=== PATIENT | female | born 1970 | race Caucasian/White ===

== ENCOUNTER 2018-09-19 12:35 | Emergency (ER) | payer MEDICAID ==
[~2018-09-19] VITALS: Ht 157.5 cm; Wt 65.0 kg
[~2018-09-19 12:35] MED LIST: BACTRIM DS1 TAB OR; KLONOPIN1 MG OR; LEXAPRO20 MG OR; NAPROXEN500 MG OR; NO HOME MEDS
[2018-09-19] MEDS ORDERED: WELLBUTRIN SR150 MG PO (12:40)
[2018-09-19] MEDS ORDERED: CITALOPRAM20 MG PO (12:41)
[2018-09-19] MEDS ORDERED: FLEXERIL5 M1 PO (15:28)
[2018-09-19] MEDS ORDERED: NAPROSYN500 MG PO (15:28)
[2018-09-19 15:45] VITALS: BP 136/82
== END 2018-09-19 15:40 | disposition home or self-care (01) ==
LOC: ED 12:35
DX: M54.6 Pain in thoracic spine (principal); M25.512 Pain in left shoulder; W16.212A Fall in (into) filled bathtub causing other injury, initial encounter; Y93.E1 Activity, personal bathing and showering; Y92.002 Bathroom of unspecified non-institutional (private) residence as the place of occurrence of the external cause; Z87.891 Personal history of nicotine dependence

== ENCOUNTER 2018-10-25 18:44 | Emergency (ER) | payer OTHER ==
[~2018-10-25] VITALS: Ht 157.5 cm; Wt 63.6 kg
[~2018-10-25 18:44] MED LIST changes: +CITALOPRAM20 MG PO; +FLEXERIL5 M1 PO; +NAPROSYN500 MG PO; +WELLBUTRIN SR150 MG PO
--- NOTE | 2018-10-25 19:05 | NUR ---
BREATHING TREATMENT GIVEN BACK TO BACK. BREATHING TECH. FOR GOOD DEPOSITION TO THE LUNGS.
[2018-10-25 19:36] LABS: HEMATOCRIT 31.6 % (37.0-47.0); HEMOGLOBIN 10.1 g/dl (12.0-16.0); IMMATURE GRANULOCYTES 0.2 % (0.0-5.0); MEAN CORPUSCULAR HGB 27.8 pG CALC (26.0-32.0); NEUT# 5.23 thou/uL (2.00-7.15); RED BLOOD COUNT 3.63 mill/uL (4.20-5.60); RED CELL DISTRI WIDTH 14.2 % (11.5-15.5)
[2018-10-25 19:37] LABS: MEAN CELL VOLUME 87.1 fL CALC (80.0-100.0)
[2018-10-25 19:49] LABS: ALBUMIN 4.3 g/dL (3.2-5.0); ALKALINE PHOSPHATASE 93 u/l (38-126); ANION GAP 14 (6-22 (CALC)); BILIRUBIN, TOTAL 0.2 mg/dL (0.0-1.4); BUN 15 mg/dL (7-17); BUN/CREATININE RATIO 24 (12-20 (CALC)); CARBON DIOXIDE 23 mmol/l (22-30); CHLORIDE 107 mmol/l (95-108); CREATININE 0.6 mg/dL (0.5-1.0); GFR > 60 ML/MIN (>=60 (CALC)); GFR FOR AFR.AMER. > 60 ML/MIN (>=60 (CALC)); SGOT/AST 27 u/l (14-36); SODIUM 140 mmol/l (137-146); TOTAL PROTEIN 7.1 g/dL (6.3-8.2)
[2018-10-25] MEDS ORDERED: VENTOLIN HFA IN (20:51)
[2018-10-25] MEDS ORDERED: ROBITUSSIN AC10 ML PO (20:51)
[2018-10-25] MEDS ORDERED: PREDNISONE50 MG PO (20:51)
[2018-10-25 21:20] VITALS: BP 127/67
== END 2018-10-25 21:20 | disposition home or self-care (01) ==
LOC: ED 18:44
PROVIDERS: Family Medicine
DX: J20.8 Acute bronchitis due to other specified organisms (principal); R06.02 Shortness of breath; R05 Cough; R51 Headache; J02.9 Acute pharyngitis, unspecified; J34.89 Other specified disorders of nose and nasal sinuses

== ENCOUNTER 2019-02-11 09:11 | Emergency (ER) | payer OTHER ==
[~2019-02-11] VITALS: Ht 157.5 cm; Wt 70.0 kg
[~2019-02-11 09:11] MED LIST changes: +PREDNISONE50 MG PO; +ROBITUSSIN AC10 ML PO; +VENTOLIN HFA IN
[2019-02-11 10:11] LABS: HEMATOCRIT 26.7 % (37.0-47.0); IMMATURE GRANULOCYTES 0.4 % (0.0-5.0); MEAN CELL VOLUME 83.4 fL CALC (80.0-100.0); MEAN CORPUSCULAR HGB 24.4 pG CALC (26.0-32.0); MEAN CORPUSCULAR HGB CONC 29.2 g/L CALC (32.0-36.0); NEUT# 4.74 thou/uL (2.00-7.15); RED BLOOD COUNT 3.2 mill/uL (4.20-5.60); RED CELL DISTRI WIDTH 14.1 % (11.5-15.5)
[2019-02-11 10:16] LABS: HEMOGLOBIN 7.8 g/dl (12.0-16.0)
[2019-02-11 10:34] LABS: ALBUMIN 3.8 g/dL (3.2-5.0); ALKALINE PHOSPHATASE 81 u/l (38-126); ANION GAP 10 (6-22 (CALC)); BUN 16 mg/dL (7-17); BUN/CREATININE RATIO 27 (12-20 (CALC)); CARBON DIOXIDE 25 mmol/l (22-30); CHLORIDE 107 mmol/l (95-108); CREATININE 0.6 mg/dL (0.5-1.0); GFR > 60 ML/MIN (>=60 (CALC)); GFR FOR AFR.AMER. > 60 ML/MIN (>=60 (CALC)); POTASSIUM 3.8 mmol/l (3.5-5.1); SGOT/AST 16 u/l (14-36); SODIUM 139 mmol/l (137-146); TOTAL PROTEIN 6.3 g/dL (6.3-8.2)
[2019-02-11 10:44] LABS: BILIRUBIN, TOTAL 0.3 mg/dL (0.0-1.4)
[2019-02-11] MEDS ORDERED: FLEXERIL PO (11:11)
[2019-02-11] MEDS ORDERED: TORADOL PO (11:11)
[2019-02-11] MEDS ORDERED: ZOFRAN4 M1 PO (11:11)
[2019-02-11 11:16] VITALS: BP 120/57
== END 2019-02-11 11:25 | disposition home or self-care (01) ==
LOC: ED 09:11
PROVIDERS: Emergency Medicine
DX: R51 Headache (principal); S16.1XXA Strain of muscle, fascia and tendon at neck level, initial encounter; X58.XXXA Exposure to other specified factors, initial encounter; Z87.820 Personal history of traumatic brain injury; M54.2 Cervicalgia

== ENCOUNTER 2019-03-19 14:39 | Emergency (ER) | payer OTHER ==
[~2019-03-19] VITALS: Ht 157.5 cm; Wt 70.0 kg
[~2019-03-19 14:39] MED LIST changes: +FLEXERIL PO; +TORADOL PO; +ZOFRAN4 M1 PO
[2019-03-19 16:30] VITALS: BP 162/85
== END 2019-03-19 16:35 | disposition home or self-care (01) ==
LOC: ED 14:39 → ED-I 15:06 → ED 15:06
DX: G43.909 Migraine, unspecified, not intractable, without status migrainosus (principal); J02.9 Acute pharyngitis, unspecified; H92.09 Otalgia, unspecified ear

== ENCOUNTER 2019-03-22 21:55 | Emergency (ER) | payer OTHER ==
[~2019-03-22] VITALS: Ht 157.5 cm; Wt 71.0 kg
[2019-03-23] MEDS ORDERED: PROVENTIL HFA IN (00:22)
[2019-03-23] MEDS ORDERED: CODEINE/GUAIFEN1 SOL PO (00:22)
[2019-03-23 00:40] VITALS: BP 139/73
== END 2019-03-23 00:39 | disposition home or self-care (01) ==
LOC: ED 21:55
DX: J04.0 Acute laryngitis (principal); R05 Cough; J02.9 Acute pharyngitis, unspecified

== ENCOUNTER 2019-06-10 00:03 | Emergency (ER) | payer OTHER ==
[~2019-06-10] VITALS: Ht 157.5 cm; Wt 74.5 kg
[~2019-06-10 00:03] MED LIST changes: +CODEINE/GUAIFEN1 SOL PO; +PROVENTIL HFA IN
[2019-06-10 00:53] LABS: HEMATOCRIT 27.5 % (37.0-47.0); HEMOGLOBIN 8.1 g/dl (12.0-16.0); IMMATURE GRANULOCYTES 0.3 % (0.0-5.0); MEAN CELL VOLUME 79.7 fL CALC (80.0-100.0); MEAN CORPUSCULAR HGB 23.5 pG CALC (26.0-32.0); MEAN CORPUSCULAR HGB CONC 29.5 g/L CALC (32.0-36.0); NEUT# 5.94 thou/uL (2.00-7.15); RED BLOOD COUNT 3.45 mill/uL (4.20-5.60); RED CELL DISTRI WIDTH 15.2 % (11.5-15.5)
[2019-06-10 01:09] LABS: ALKALINE PHOSPHATASE 95 u/l (38-126); ANION GAP 14 (6-22 (CALC)); BILIRUBIN, TOTAL 0.4 mg/dL (0.0-1.4); BUN 22 mg/dL (7-17); BUN/CREATININE RATIO 37 (12-20 (CALC)); CARBON DIOXIDE 25 mmol/l (22-30); CHLORIDE 105 mmol/l (95-108); CREATININE 0.6 mg/dL (0.5-1.0); GFR > 60 ML/MIN (>=60 (CALC)); GFR FOR AFR.AMER. > 60 ML/MIN (>=60 (CALC)); POTASSIUM 4.4 mmol/l (3.5-5.1); SODIUM 139 mmol/l (137-146)
[2019-06-10 01:10] LABS: ALBUMIN 4.6 g/dL (3.2-5.0); SGOT/AST 32 u/l (14-36); TOTAL PROTEIN 7.8 g/dL (6.3-8.2)
[2019-06-10 01:11] LABS: BARBITURATES NEGATIVE (NEGATIVE); COCAINE NEGATIVE (NEGATIVE); METHADONE NEGATIVE (NEGATIVE); TETRAHYDROCANNABIONOL NEGATIVE (NEGATIVE); TRICYLIC ANTIDEPRESSANTS NEGATIVE (NEGATIVE); URINE BILIRUBIN - DIPSTICK NEGATIVE (NEGATIVE); URINE BLOOD DIPSTICK NEGATIVE (NEGATIVE); URINE COLOR YELLOW; URINE GLUCOSE - DIPSTICK NEGATIVE (NEGATIVE); URINE KETONE NEGATIVE (NEGATIVE); URINE LEUK ESTERASE NEGATIVE (NEGATIVE); URINE NITRITE - DIPSTICK NEGATIVE (Negative); URINE PROTEIN - DIPSTICK NEGATIVE (NEG-TRACE); URINE SPECIFIC GRAVITY 1.025; URINE UROBILINOGEN - DIPSTICK 0.2 E.U./dL (0.2)
[2019-06-10 01:12] LABS: OXCYCODONE NEGATIVE (NEGATIVE)
[2019-06-10] MEDS ORDERED: ULTRAM50 M1 PO (02:56)
[2019-06-10 03:09] VITALS: BP 148/72
== END 2019-06-10 03:26 | disposition home or self-care (01) ==
LOC: ED 00:03
PROVIDERS: Emergency Medicine
DX: N28.1 Cyst of kidney, acquired (principal); K76.89 Other specified diseases of liver; K44.9 Diaphragmatic hernia without obstruction or gangrene

== ENCOUNTER 2019-06-19 20:39 | Emergency (ER) | payer OTHER ==
[~2019-06-19] VITALS: Ht 157.5 cm; Wt 74.1 kg
[~2019-06-19 20:39] MED LIST changes: +ULTRAM50 M1 PO
[2019-06-19 21:11] LABS: HEMATOCRIT 27.3 % (37.0-47.0); HEMOGLOBIN 7.9 g/dl (12.0-16.0); IMMATURE GRANULOCYTES 0.3 % (0.0-5.0); MEAN CELL VOLUME 80.3 fL CALC (80.0-100.0); MEAN CORPUSCULAR HGB 23.2 pG CALC (26.0-32.0); MEAN CORPUSCULAR HGB CONC 28.9 g/L CALC (32.0-36.0); NEUT# 4.38 thou/uL (2.00-7.15); RED BLOOD COUNT 3.4 mill/uL (4.20-5.60); RED CELL DISTRI WIDTH 15.1 % (11.5-15.5)
[2019-06-19 21:24] LABS: ALBUMIN 4.3 g/dL (3.2-5.0); ALKALINE PHOSPHATASE 78 u/l (38-126); AMYLASE 50 u/l (30-110); ANION GAP 13 (6-22 (CALC)); BILIRUBIN, TOTAL 0.3 mg/dL (0.0-1.4); BUN 17 mg/dL (7-17); BUN/CREATININE RATIO 27 (12-20 (CALC)); CARBON DIOXIDE 27 mmol/l (22-30); CHLORIDE 103 mmol/l (95-108); CREATININE 0.6 mg/dL (0.5-1.0); GFR > 60 ML/MIN (>=60 (CALC)); GFR FOR AFR.AMER. > 60 ML/MIN (>=60 (CALC)); LIPASE 61 u/l (23-300); POTASSIUM 3.7 mmol/l (3.5-5.1); SGOT/AST 31 u/l (14-36); SODIUM 139 mmol/l (137-146); TOTAL PROTEIN 7.3 g/dL (6.3-8.2)
[2019-06-19 22:19] LABS: URINE BILIRUBIN - DIPSTICK NEGATIVE (NEGATIVE); URINE BLOOD DIPSTICK NEGATIVE (NEGATIVE); URINE COLOR YELLOW; URINE GLUCOSE - DIPSTICK NEGATIVE (NEGATIVE); URINE KETONE NEGATIVE (NEGATIVE); URINE LEUK ESTERASE NEGATIVE (NEGATIVE); URINE NITRITE - DIPSTICK NEGATIVE (Negative); URINE PH 5.5 (4.5-8.0); URINE PROTEIN - DIPSTICK NEGATIVE (NEG-TRACE); URINE UROBILINOGEN - DIPSTICK 0.2 E.U./dL (0.2)
[2019-06-19 22:30] VITALS: BP 138/72
[2019-06-19] MEDS ORDERED: ORPHENADRINE100 MG PO (22:39)
[2019-06-19] MEDS ORDERED: TRAMADOL HCL50 MG PO (22:39)
[2019-06-19] MEDS ORDERED: FERROUS SULF325 M3 PO (22:42)
== END 2019-06-19 22:50 | disposition home or self-care (01) ==
LOC: ED 20:39
PROVIDERS: Family Medicine
DX: M54.5 Low back pain (principal); R10.9 Unspecified abdominal pain; D64.9 Anemia, unspecified; N28.1 Cyst of kidney, acquired

== ENCOUNTER 2019-07-14 15:29 | Emergency (ER) | payer OTHER ==
[~2019-07-14] VITALS: Ht 157.5 cm; Wt 70.0 kg
[~2019-07-14 15:29] MED LIST changes: +FERROUS SULF325 M3 PO; +ORPHENADRINE100 MG PO; +TRAMADOL HCL50 MG PO
[2019-07-14 16:15] LABS: HEMATOCRIT 28.2 % (37.0-47.0); HEMOGLOBIN 8.1 g/dl (12.0-16.0); IMMATURE GRANULOCYTES 0.3 % (0.0-5.0); MEAN CELL VOLUME 78.6 fL CALC (80.0-100.0); MEAN CORPUSCULAR HGB 22.6 pG CALC (26.0-32.0); MEAN CORPUSCULAR HGB CONC 28.7 g/L CALC (32.0-36.0); NEUT# 3.99 thou/uL (2.00-7.15); RED BLOOD COUNT 3.59 mill/uL (4.20-5.60)
[2019-07-14 16:30] LABS: ALBUMIN 4.4 g/dL (3.2-5.0); ALKALINE PHOSPHATASE 86 u/l (38-126); ANION GAP 13 (6-22 (CALC)); BILIRUBIN, TOTAL 0.3 mg/dL (0.0-1.4); BUN 17 mg/dL (7-17); BUN/CREATININE RATIO 28 (12-20 (CALC)); CARBON DIOXIDE 24 mmol/l (22-30); CHLORIDE 107 mmol/l (95-108); CREATININE 0.6 mg/dL (0.5-1.0); GFR > 60 ML/MIN (>=60 (CALC)); GFR FOR AFR.AMER. > 60 ML/MIN (>=60 (CALC)); SGOT/AST 24 u/l (14-36); SODIUM 140 mmol/l (137-146); TOTAL PROTEIN 7.6 g/dL (6.3-8.2)
[2019-07-14 16:41] LABS: URINE BILIRUBIN - DIPSTICK NEGATIVE (NEGATIVE); URINE BLOOD DIPSTICK NEGATIVE (NEGATIVE); URINE COLOR YELLOW; URINE GLUCOSE - DIPSTICK NEGATIVE (NEGATIVE); URINE KETONE NEGATIVE (NEGATIVE); URINE LEUK ESTERASE NEGATIVE (NEGATIVE); URINE NITRITE - DIPSTICK NEGATIVE (Negative); URINE PROTEIN - DIPSTICK NEGATIVE (NEG-TRACE); URINE SPECIFIC GRAVITY 1.025; URINE UROBILINOGEN - DIPSTICK 0.2 E.U./dL (0.2)
[2019-07-14 16:45] LABS: BARBITURATES NEGATIVE (NEGATIVE); COCAINE NEGATIVE (NEGATIVE); METHADONE NEGATIVE (NEGATIVE); OXCYCODONE NEGATIVE (NEGATIVE); TETRAHYDROCANNABIONOL NEGATIVE (NEGATIVE); TRICYLIC ANTIDEPRESSANTS NEGATIVE (NEGATIVE)
[2019-07-14 17:58] VITALS: BP 143/69
== END 2019-07-14 18:11 | disposition home or self-care (01) ==
LOC: ED 15:29
DX: R51 Headache (principal); F41.9 Anxiety disorder, unspecified; R82.5 Elevated urine levels of drugs, medicaments and biological substances; Z87.820 Personal history of traumatic brain injury

== ENCOUNTER 2020-02-17 18:00 | Emergency (ER) | payer OTHER ==
[2020-02-17 18:50] LABS: IMMATURE GRANULOCYTES 0.1 % (0.0-5.0); MEAN CORPUSCULAR HGB CONC 34.3 g/dL CAL (32.0-36.0); NEUT# 3.72 thou/uL (2.00-7.15); RED BLOOD COUNT 3.97 mill/uL (4.20-5.60); RED CELL DISTRI WIDTH 12.1 % (11.5-15.5)
[2020-02-17 18:55] LABS: HEMOGLOBIN 12.7 g/dl (12.0-16.0); MEAN CELL VOLUME 93.2 fL CALC (80.0-100.0)
[2020-02-17 19:09] LABS: ANION GAP 12 (6-22 (CALC)); BUN 12 mg/dL (7-17); BUN/CREATININE RATIO 22 (12-20 (CALC)); CARBON DIOXIDE 22 mmol/l (22-30); CHLORIDE 107 mmol/l (95-108); CREATININE 0.6 mg/dL (0.5-1.0); GFR > 60 ML/MIN (>=60 (CALC)); GFR FOR AFR.AMER. > 60 ML/MIN (>=60 (CALC)); POTASSIUM 3.6 mmol/l (3.5-5.1); SODIUM 137 mmol/l (137-146)
[2020-02-17] MEDS ORDERED: LEVOTHYROXIN50 MCG PO (19:48)
[2020-02-17] MEDS ORDERED: ZOCOR20 M1 PO (19:48)
[2020-02-17] MEDS ORDERED: ALPRAZOLAM0.5 M2 PO (20:21)
[2020-02-17 23:00] VITALS: BP 102/55
--- NOTE | 2020-02-22 11:10 | NUR ---
Notified patient of negative Covid results. Advised patient to follow up with PCP or return to ED with urgent needs. Advised patient to continue Covid prevention measures.
== END 2020-02-17 23:09 | disposition home or self-care (01) ==
LOC: ED 18:00
PROVIDERS: Family Medicine
DX: F41.9 Anxiety disorder, unspecified (principal); R07.89 Other chest pain; Z20.828 Contact with and (suspected) exposure to other viral communicable diseases
CPT/HCPCS: J2060

== ENCOUNTER 2020-04-12 18:21 | Emergency (ER) | payer OTHER ==
[~2020-04-12] VITALS: Ht 157.5 cm; Wt 75.0 kg
[~2020-04-12 18:21] MED LIST changes: +ALPRAZOLAM0.5 M2 PO; +LEVOTHYROXIN50 MCG PO; +ZOCOR20 M1 PO
[2020-04-12 18:58] LABS: HEMATOCRIT 37.7 % (37.0-47.0); HEMOGLOBIN 12.6 g/dl (12.0-16.0); IMMATURE GRANULOCYTES 0.3 % (0.0-5.0); MEAN CELL VOLUME 93.3 fL CALC (80.0-100.0); MEAN CORPUSCULAR HGB 31.2 pG CALC (26.0-32.0); MEAN CORPUSCULAR HGB CONC 33.4 g/dL CAL (32.0-36.0); NEUT# 4.55 thou/uL (2.00-7.15); RED BLOOD COUNT 4.04 mill/uL (4.20-5.60); RED CELL DISTRI WIDTH 12.1 % (11.5-15.5)
[2020-04-12 19:15] LABS: ALKALINE PHOSPHATASE 113 u/l (38-126); ANION GAP 9 (6-22 (CALC)); BILIRUBIN, TOTAL 0.6 mg/dL (0.0-1.4); BUN 11 mg/dL (7-17); BUN/CREATININE RATIO 22 (12-20 (CALC)); CARBON DIOXIDE 26 mmol/l (22-30); CHLORIDE 104 mmol/l (95-108); CREATININE 0.5 mg/dL (0.5-1.0); GFR > 60 ML/MIN (>=60 (CALC)); GFR FOR AFR.AMER. > 60 ML/MIN (>=60 (CALC)); POTASSIUM 3.7 mmol/l (3.5-5.1); SGOT/AST 36 u/l (14-36); SODIUM 136 mmol/l (137-146)
[2020-04-12 19:27] LABS: MYOGLOBIN 18 ng/mL (0 - 62)
[2020-04-12 19:50] LABS: URINE BILIRUBIN - DIPSTICK NEGATIVE (NEGATIVE); URINE BLOOD DIPSTICK NEGATIVE (NEGATIVE); URINE COLOR YELLOW; URINE GLUCOSE - DIPSTICK NEGATIVE (NEGATIVE); URINE KETONE NEGATIVE (NEGATIVE); URINE LEUK ESTERASE NEGATIVE (NEGATIVE); URINE NITRITE - DIPSTICK NEGATIVE (Negative); URINE PROTEIN - DIPSTICK NEGATIVE (NEG-TRACE)
[2020-04-12] MEDS ORDERED: FIORICET PO (20:01)
[2020-04-12] MEDS ORDERED: MEDDOSEPAK PO ×2 (20:20)
[2020-04-12 20:36] VITALS: BP 161/91
== END 2020-04-12 20:55 | disposition home or self-care (01) ==
LOC: ED 18:21
PROVIDERS: Emergency Medicine
DX: R56.9 Unspecified convulsions (principal); F41.9 Anxiety disorder, unspecified; L50.9 Urticaria, unspecified; Z87.820 Personal history of traumatic brain injury; Z90.710 Acquired absence of both cervix and uterus

== ENCOUNTER 2020-05-16 12:48 | Emergency (ER) | payer OTHER ==
[~2020-05-16] VITALS: Ht 157.5 cm; Wt 74.0 kg
[~2020-05-16 12:48] MED LIST changes: +FIORICET PO; +MEDDOSEPAK PO
[2020-05-16 14:05] VITALS: BP 128/77
== END 2020-05-16 14:05 | disposition home or self-care (01) ==
LOC: ED 12:48
DX: S60.052A Contusion of left little finger without damage to nail, initial encounter (principal); W23.0XXA Caught, crushed, jammed, or pinched between moving objects, initial encounter; Y93.89 Activity, other specified; Y92.009 Unspecified place in unspecified non-institutional (private) residence as the place of occurrence of the external cause

== ENCOUNTER 2020-05-23 16:17 | Emergency (ER) | payer OTHER ==
[~2020-05-23] VITALS: Ht 157.5 cm; Wt 86.0 kg
[2020-05-23] MEDS ORDERED: ESTROVE1 PO (16:38)
[2020-05-23] MEDS ORDERED: BLACK COHOSH20 MG PO (16:39)
[2020-05-23 17:04] LABS: HEMOGLOBIN 12.7 g/dl (12.0-16.0); IMMATURE GRANULOCYTES 0.3 % (0.0-5.0); MEAN CORPUSCULAR HGB 30.8 pG CALC (26.0-32.0); MEAN CORPUSCULAR HGB CONC 33.4 g/dL CAL (32.0-36.0); NEUT# 4.17 thou/uL (2.00-7.15); RED BLOOD COUNT 4.13 mill/uL (4.20-5.60); RED CELL DISTRI WIDTH 12.1 % (11.5-15.5)
[2020-05-23 17:21] LABS: URINE BILIRUBIN - DIPSTICK NEGATIVE (NEGATIVE); URINE BLOOD DIPSTICK NEGATIVE (NEGATIVE); URINE COLOR YELLOW; URINE GLUCOSE - DIPSTICK NEGATIVE (NEGATIVE); URINE KETONE NEGATIVE (NEGATIVE); URINE LEUK ESTERASE NEGATIVE (NEGATIVE); URINE NITRITE - DIPSTICK NEGATIVE (Negative); URINE PROTEIN - DIPSTICK NEGATIVE (NEG-TRACE); URINE UROBILINOGEN - DIPSTICK 0.2 E.U./dL (0.2)
[2020-05-23 17:28] LABS: ALBUMIN 4.1 g/dL (3.2-5.0); ALKALINE PHOSPHATASE 130 u/l (38-126); ANION GAP 12 (6-22 (CALC)); BILIRUBIN, TOTAL 0.4 mg/dL (0.0-1.4); BUN 12 mg/dL (7-17); BUN/CREATININE RATIO 27 (12-20 (CALC)); CARBON DIOXIDE 24 mmol/l (22-30); CHLORIDE 107 mmol/l (95-108); CREATININE 0.5 mg/dL (0.5-1.0); ETHYL ALCOHOL 0 mg/dl (0-30); GFR > 60 ML/MIN (>=60 (CALC)); GFR FOR AFR.AMER. > 60 ML/MIN (>=60 (CALC)); POTASSIUM 3.9 mmol/l (3.5-5.1); SGOT/AST 26 u/l (14-36); SODIUM 140 mmol/l (137-146); TOTAL PROTEIN 6.9 g/dL (6.3-8.2)
[2020-05-23 17:55] VITALS: BP 117/64
== END 2020-05-23 17:49 | disposition home or self-care (01) ==
LOC: ED 16:17
PROVIDERS: Family Medicine
DX: R56.9 Unspecified convulsions (principal); F15.21 Other stimulant dependence, in remission; Z90.710 Acquired absence of both cervix and uterus; Z87.820 Personal history of traumatic brain injury; Z20.828 Contact with and (suspected) exposure to other viral communicable diseases

== ENCOUNTER 2020-06-28 16:35 | Emergency (ER) | payer OTHER ==
[~2020-06-28] VITALS: Ht 157.5 cm; Wt 86.0 kg
[~2020-06-28 16:35] MED LIST changes: +BLACK COHOSH20 MG PO; +ESTROVE1 PO
[2020-06-28] MEDS ORDERED: SIMVASTATIN20 MG PO (17:11)
[2020-06-28] MEDS ORDERED: ZITHROMAX250 MG PO (18:17)
[2020-06-28] MEDS ORDERED: KEPPRA XR500 MG PO (18:59)
[2020-06-28 20:23] VITALS: BP 128/67
== END 2020-06-28 19:23 | disposition home or self-care (01) ==
LOC: ED 16:35
DX: R50.9 Fever, unspecified (principal); F41.9 Anxiety disorder, unspecified; F31.9 Bipolar disorder, unspecified; E03.9 Hypothyroidism, unspecified; Z87.820 Personal history of traumatic brain injury; Z20.828 Contact with and (suspected) exposure to other viral communicable diseases

== ENCOUNTER 2020-07-01 15:31 | Emergency (ER) | payer OTHER ==
[~2020-07-01] VITALS: Ht 157.5 cm; Wt 68.0 kg
[~2020-07-01 15:31] MED LIST changes: +KEPPRA XR500 MG PO; +SIMVASTATIN20 MG PO; +ZITHROMAX250 MG PO
[2020-07-01 16:44] VITALS: BP 140/82
== END 2020-07-01 16:53 | disposition home or self-care (01) ==
LOC: ED 15:31
DX: R52 Pain, unspecified (principal); F41.9 Anxiety disorder, unspecified; F31.9 Bipolar disorder, unspecified; E03.9 Hypothyroidism, unspecified

== ENCOUNTER 2020-09-13 18:01 | Emergency (ER) | payer OTHER ==
[~2020-09-13] VITALS: Ht 157.5 cm; Wt 72.7 kg
[2020-09-13] MEDS ORDERED: PHENERGAN25 MG RE (18:57)
[2020-09-13] MEDS ORDERED: FIORICET PO (18:57)
[2020-09-13 20:10] VITALS: BP 136/66
== END 2020-09-13 20:20 | disposition home or self-care (01) ==
LOC: ED 18:01
DX: G43.909 Migraine, unspecified, not intractable, without status migrainosus (principal); G40.909 Epilepsy, unspecified, not intractable, without status epilepticus; F41.9 Anxiety disorder, unspecified; F31.9 Bipolar disorder, unspecified; E03.9 Hypothyroidism, unspecified; Z87.820 Personal history of traumatic brain injury; Z20.828 Contact with and (suspected) exposure to other viral communicable diseases

== ENCOUNTER 2020-10-27 10:01 | Emergency (ER) | payer OTHER ==
[~2020-10-27] VITALS: Ht 157.5 cm; Wt 75.0 kg
[~2020-10-27 10:01] MED LIST changes: +PHENERGAN25 MG RE
[2020-10-27 11:15] LABS: HEMATOCRIT 40.7 % (37.0-47.0); HEMOGLOBIN 13.7 g/dl (12.0-16.0); IMMATURE GRANULOCYTES 0.4 % (0.0-5.0); MEAN CELL VOLUME 93.6 fL CALC (80.0-100.0); MEAN CORPUSCULAR HGB 31.5 pG CALC (26.0-32.0); MEAN CORPUSCULAR HGB CONC 33.7 g/dL CAL (32.0-36.0); NEUT# 7.64 thou/uL (2.00-7.15); RED BLOOD COUNT 4.35 mill/uL (4.20-5.60); RED CELL DISTRI WIDTH 12.5 % (11.5-15.5)
[2020-10-27 11:31] LABS: ALBUMIN 4.3 g/dL (3.2-5.0); ALKALINE PHOSPHATASE 232 u/l (38-126); ANION GAP 11 (6-22 (CALC)); BILIRUBIN, TOTAL 0.9 mg/dL (0.0-1.4); BUN 13 mg/dL (7-17); BUN/CREATININE RATIO 25 (12-20 (CALC)); CARBON DIOXIDE 25 mmol/l (22-30); CHLORIDE 106 mmol/l (95-108); CREATININE 0.5 mg/dL (0.5-1.0); GFR > 60 ML/MIN (>=60 (CALC)); GFR FOR AFR.AMER. > 60 ML/MIN (>=60 (CALC)); POTASSIUM 3.9 mmol/l (3.5-5.1); SGOT/AST 61 u/l (14-36); SODIUM 138 mmol/l (137-146); TOTAL PROTEIN 7.6 g/dL (6.3-8.2)
[2020-10-27 12:13] VITALS: BP 116/72
== END 2020-10-27 12:14 | disposition home or self-care (01) ==
LOC: ED 10:01
PROVIDERS: Family Medicine
DX: J06.9 Acute upper respiratory infection, unspecified (principal); R51.9 Headache, unspecified; R52 Pain, unspecified; I10 Essential (primary) hypertension; F41.9 Anxiety disorder, unspecified; F31.9 Bipolar disorder, unspecified; E03.9 Hypothyroidism, unspecified; E78.00 Pure hypercholesterolemia, unspecified; Z87.820 Personal history of traumatic brain injury; Z20.822 Contact with and (suspected) exposure to COVID-19

== ENCOUNTER 2020-10-29 10:04 | Emergency (ER) | payer OTHER ==
[~2020-10-29] VITALS: Ht 157.5 cm; Wt 70.4 kg
[2020-10-29] MEDS ORDERED: OMEPRAZOLE DR20 MG PO (10:40)
[2020-10-29] MEDS ORDERED: VENTOLIN HFA IN (12:16)
[2020-10-29] MEDS ORDERED: TESSALON PERLE100 MG PO (12:16)
[2020-10-29] MEDS ORDERED: ZITHROMAX250 MG PO (12:16)
[2020-10-29] MEDS ORDERED: MEDDOSEPAK PO (12:16)
[2020-10-29 12:51] VITALS: BP 136/77
== END 2020-10-29 12:54 | disposition home or self-care (01) ==
LOC: ED 10:04
DX: J40 Bronchitis, not specified as acute or chronic (principal); J32.9 Chronic sinusitis, unspecified; E03.9 Hypothyroidism, unspecified; F41.9 Anxiety disorder, unspecified; F31.9 Bipolar disorder, unspecified; K21.9 Gastro-esophageal reflux disease without esophagitis; Z87.820 Personal history of traumatic brain injury

== ENCOUNTER 2020-12-29 15:41 | Observation (INO) | payer OTHER ==
[~2020-12-29] VITALS: Ht 157.5 cm; Wt 74.0 kg
[~2020-12-29 15:41] MED LIST changes: +OMEPRAZOLE DR20 MG PO; +TESSALON PERLE100 MG PO
--- NOTE | 2020-12-29 15:50 | NUR ---
AMBULATED TO ROOM WITH STEADY GAIT, WHEELCHAIR OFFERED AND DECLINED.
--- NOTE | 2020-12-29 16:30 | NUR ---
PATIENT SPOUSE AT BEDSIDE
[2020-12-29 16:49] LABS: HEMATOCRIT 38.5 % (37.0-47.0); IMMATURE GRANULOCYTES 0.2 % (0.0-5.0); MEAN CELL VOLUME 93.2 fL CALC (80.0-100.0); MEAN CORPUSCULAR HGB 31.5 pG CALC (26.0-32.0); MEAN CORPUSCULAR HGB CONC 33.8 g/dL CAL (32.0-36.0); NEUT# 3.22 thou/uL (2.00-7.15); RED BLOOD COUNT 4.13 mill/uL (4.20-5.60); RED CELL DISTRI WIDTH 12.4 % (11.5-15.5)
--- NOTE | 2020-12-29 16:51 | NUR ---
PATIENT TO CT,STABLE.
[2020-12-29 16:59] LABS: ALKALINE PHOSPHATASE 118 u/l (38-126); ANION GAP 10 (6-22 (CALC)); BILIRUBIN, TOTAL 0.6 mg/dL (0.0-1.4); BUN 13 mg/dL (7-17); BUN/CREATININE RATIO 26 (12-20 (CALC)); CARBON DIOXIDE 27 mmol/l (22-30); CHLORIDE 103 mmol/l (95-108); CREATININE 0.5 mg/dL (0.5-1.0); GFR > 60 ML/MIN (>=60 (CALC)); GFR FOR AFR.AMER. > 60 ML/MIN (>=60 (CALC)); POTASSIUM 3.7 mmol/l (3.5-5.1); SGOT/AST 32 u/l (14-36); SODIUM 137 mmol/l (137-146)
--- NOTE | 2020-12-29 17:23 | NUR ---
PATIENT RESTING,LIGHTS DIMMED FOR COMFORT.
--- NOTE | 2020-12-29 18:31 | NUR ---
PHYSICIAN TO BEDSIDE TO DISCUS FINDINGS AND POSSIBLE ADMISSION.
--- NOTE | 2020-12-29 19:10 | NUR ---
MEDICATED FOR L BREAST PAIN W/P/D SKIN NO SWEATS NO DYSPNEA NO ST T CHANGES NBO ECTOPY
--- NOTE | 2020-12-29 20:50 | NUR ---
PHONE REPORT TO NURSE TAPIA ON MS
--- NOTE | 2020-12-29 20:55 | NUR ---
W/P/D NSR NO ST T CHANGES DENIES PAIN OF ANY ORIGIN TRANSPORTED TO [facility] [address] VIA TELE AND IN STABLE CONDITION
[2020-12-29 21:05] VITALS: BP 142/86
--- NOTE | 2020-12-29 21:05 | NUR ---
PT ARRIVED TO FLOOR VIA WHEELCHAIR ACCOMPAINED BY ER STAFF. PT IS ALERT AND ORIENTED X4. AMBULATORY WITH STEADY GAIT FROM WHEELCHAIR TO BED. IV SITE APPEARS HEALTHY. SUPERVISOR TANK HOUSE IN PLACE. PT ORIENTED TO ROOM AND CALL LIGHT SYSTEM. MEAL PROVIDED. DISCUSSED POC AND SAFETY PRECAUTIONS. CALL LIGHT WITHIN REACH. WILL CONTINUE TO MONITOR.
[2020-12-29 22:36] LABS: URINE BILIRUBIN - DIPSTICK NEGATIVE (NEGATIVE); URINE BLOOD DIPSTICK NEGATIVE (NEGATIVE); URINE COLOR YELLOW; URINE GLUCOSE - DIPSTICK NEGATIVE (NEGATIVE); URINE KETONE NEGATIVE (NEGATIVE); URINE LEUK ESTERASE NEGATIVE (NEGATIVE); URINE PROTEIN - DIPSTICK NEGATIVE (NEG-TRACE)
[2020-12-29 22:44] LABS: URINE NITRITE - DIPSTICK NEGATIVE (Negative)
[2020-12-29 22:46] LABS: URINE AMORPH SEDIMENT FEW hpf (NONE-FEW); URINE BACTERIA FEW hpf; URINE RBC 0-2 RBC/hpf (0-5); URINE SQUAMOUS EPITHELIAL CELL FEW EPI/hpf (0-FEW); URINE WBC 0-2 WBC/hpf (0-5)
[2020-12-30 00:15] VITALS: BP 116/71
--- NOTE | 2020-12-30 01:35 | NUR ---
PT RESTING IN BED WITH EYES CLOSED. NO APPARENT DISTRESS NOTED. RESPIRATIONS EVEN AND UNLABORED. IV FLUIDS INFUSING WITHOUT DIFFICULTY. TEACHER DANCING IN PLACE. CALL LIGHT WITHIN REACH. WILL CONTINUE TO MONITOR.
[2020-12-30 03:50] VITALS: BP 104/68
--- NOTE | 2020-12-30 05:17 | NUR ---
PT RESTING IN BED WITH EYES CLOSED. NO APPARENT DISTRESS NOTED. RESPIRATIONS EVEN AND UNLABORED. IV FLUIDS INFUSING WITHOUT DIFFICULTY. JOURNEYMAN PAINTER IN PLACE. CALL LIGHT WITHIN REACH. WILL CONTINUE TO MONITOR.
[2020-12-30 05:30] LABS: HEMATOCRIT 35.3 % (37.0-47.0); HEMOGLOBIN 11.9 g/dl (12.0-16.0); IMMATURE GRANULOCYTES 0.3 % (0.0-5.0); MEAN CELL VOLUME 94.9 fL CALC (80.0-100.0); MEAN CORPUSCULAR HGB CONC 33.7 g/dL CAL (32.0-36.0); NEUT# 2.89 thou/uL (2.00-7.15); RED BLOOD COUNT 3.72 mill/uL (4.20-5.60); RED CELL DISTRI WIDTH 12.5 % (11.5-15.5)
[2020-12-30 05:47] LABS: ALBUMIN 3.3 g/dL (3.2-5.0); ALKALINE PHOSPHATASE 90 u/l (38-126); ANION GAP 7 (6-22 (CALC)); BILIRUBIN, TOTAL 0.6 mg/dL (0.0-1.4); BUN 17 mg/dL (7-17); BUN/CREATININE RATIO 40 (12-20 (CALC)); CALCULATED LDLCHOLESTEROL 82 mg/dL (62-129 (CALC)); CARBON DIOXIDE 27 mmol/l (22-30); CHLORIDE 107 mmol/l (95-108); CHOLESTEROL HDL RATIO 3.6 (<4.4 (CALC)); CREATININE 0.4 mg/dL (0.5-1.0); GFR > 60 ML/MIN (>=60 (CALC)); GFR FOR AFR.AMER. > 60 ML/MIN (>=60 (CALC)); HDL CHOLESTEROL 42 mg/dL (>=40); MAGNESIUM 1.6 mg/dL (1.6-2.3); SGOT/AST 35 u/l (14-36); SODIUM 137 mmol/l (137-146); TOTAL CHOLESTEROL 152 mg/dl (0-199); TOTAL PROTEIN 5.9 g/dL (6.3-8.2); TOTAL TRIGLYCERIDES 138 mg/dl (30-149); VLDL CHOLESTROL 28 mg/dl (2-49 (CALC))
[2020-12-30 07:15] VITALS: BP 110/73
--- NOTE | 2020-12-30 07:30 | NUR ---
PATIENT RESTING IN BED AT THIS TIME. DRILL FOREMAN DONE. LUNG SOUNDS ARE CLEAR, PATIENT COMPLAINS OF PAIN IN HER L SHOULDER AND STATED "I DON'T KNOW WHAT I DID TO MY SHOULDER MUSCLE". PATIENT RATES HER PAIN A 2 AT THIS TIME. PATIENTS SIDERAILS ARE PADDED AT THIS TIME DUE TO SEIZURE PERCUTIONS. SIDERAILS ARE UP X2 CALL LIGHT AND PERSONAL ITEMS ARE WITHIN IN REACH.
--- NOTE | 2020-12-30 09:02 | NUR ---
BLOOD PRESSURE TAKEN BILATERALLY AT THIS TIME BP ON THE LEFT WAS 128/84 BP ON THE RIGHT ARM WAS 132/84. DR. CAMACHO AND LACY RINCON IN ROOM AT TIME OF BP'S BEING TAKEN.
[2020-12-30 09:04] VITALS: BP 128/84
[2020-12-30 10:52] VITALS: BP 127/78
[2020-12-30] MEDS ORDERED: ASPIRIN 81 LOW81 MG PO (11:23)
--- NOTE | 2020-12-30 11:57 | NUR ---
PATIENT D/C AT THIS TIME PATIENT VERBALIZES UNDERSTANDING OF D/C INSTRUCTIONS AT THIS TIME.
== END 2020-12-30 12:07 | disposition home or self-care (01) ==
LOC: ED 15:41 → ED-I 18:14 → ED 18:40 → MS2 18:41 → ED-I 18:41 → MS2 18:42
PROVIDERS: Emergency Medicine; Nurse Practitioner; ADMIT Internal Medicine; ATTEND Internal Medicine
DX: R07.9 Chest pain, unspecified (principal); R51.9 Headache, unspecified; G40.909 Epilepsy, unspecified, not intractable, without status epilepticus; F41.9 Anxiety disorder, unspecified; F31.9 Bipolar disorder, unspecified; E03.9 Hypothyroidism, unspecified; E78.5 Hyperlipidemia, unspecified; K21.9 Gastro-esophageal reflux disease without esophagitis; Z87.820 Personal history of traumatic brain injury; Z20.822 Contact with and (suspected) exposure to COVID-19
CPT/HCPCS: G0378; J1650; Q9967

== ENCOUNTER 2021-02-02 08:35 | Emergency (ER) | payer OTHER ==
[~2021-02-02] VITALS: Ht 157.5 cm; Wt 68.1 kg
[~2021-02-02 08:35] MED LIST changes: +ASPIRIN 81 LOW81 MG PO
[2021-02-02 09:04] LABS: HEMATOCRIT 39.8 % (37.0-47.0); HEMOGLOBIN 13.4 g/dl (12.0-16.0); IMMATURE GRANULOCYTES 0.1 % (0.0-5.0); MEAN CELL VOLUME 93.2 fL CALC (80.0-100.0); MEAN CORPUSCULAR HGB 31.4 pG CALC (26.0-32.0); MEAN CORPUSCULAR HGB CONC 33.7 g/dL CAL (32.0-36.0); NEUT# 3.81 thou/uL (2.00-7.15); RED BLOOD COUNT 4.27 mill/uL (4.20-5.60); RED CELL DISTRI WIDTH 12.3 % (11.5-15.5)
[2021-02-02 09:24] LABS: ALKALINE PHOSPHATASE 115 u/l (38-126); ANION GAP 10 (6-22 (CALC)); BILIRUBIN, TOTAL 0.6 mg/dL (0.0-1.4); BUN 17 mg/dL (7-17); BUN/CREATININE RATIO 30 (12-20 (CALC)); CARBON DIOXIDE 24 mmol/l (22-30); CHLORIDE 105 mmol/l (95-108); CREATININE 0.6 mg/dL (0.5-1.0); GFR > 60 ML/MIN (>=60 (CALC)); GFR FOR AFR.AMER. > 60 ML/MIN (>=60 (CALC)); POTASSIUM 3.6 mmol/l (3.5-5.1); SGOT/AST 32 u/l (14-36); SODIUM 136 mmol/l (137-146)
[2021-02-02 09:27] LABS: ALBUMIN 4.1 g/dL (3.2-5.0); TOTAL PROTEIN 7.5 g/dL (6.3-8.2)
[2021-02-02 11:16] VITALS: BP 123/80
== END 2021-02-02 11:15 | disposition home or self-care (01) ==
LOC: ED 08:35
PROVIDERS: Family Medicine
DX: R56.9 Unspecified convulsions (principal); F41.9 Anxiety disorder, unspecified; F31.9 Bipolar disorder, unspecified; E03.9 Hypothyroidism, unspecified; E78.00 Pure hypercholesterolemia, unspecified; K21.9 Gastro-esophageal reflux disease without esophagitis; Z87.820 Personal history of traumatic brain injury; Z79.899 Other long term (current) drug therapy

== ENCOUNTER 2021-03-12 13:06 | Observation (INO) | payer OTHER ==
[~2021-03-12] VITALS: Ht 157.5 cm; Wt 67.0 kg
--- NOTE | 2021-03-12 13:07 | NUR ---
PT TO ROOM WITH STEADY GIAT
--- NOTE | 2021-03-12 14:00 | NUR ---
RESTING ON STRETCHER. CALL CANAS WITHIN REACH
[2021-03-12 14:15] LABS: IMMATURE GRANULOCYTES 0.1 % (0.0-5.0); MEAN CELL VOLUME 94.2 fL CALC (80.0-100.0); MEAN CORPUSCULAR HGB CONC 33.9 g/dL CAL (32.0-36.0); NEUT# 4.89 thou/uL (2.00-7.15); RED BLOOD COUNT 4.16 mill/uL (4.20-5.60); RED CELL DISTRI WIDTH 12.3 % (11.5-15.5)
[2021-03-12 14:19] LABS: HEMATOCRIT 39.2 % (37.0-47.0); HEMOGLOBIN 13.3 g/dl (12.0-16.0)
[2021-03-12 14:40] LABS: ALBUMIN 4.1 g/dL (3.2-5.0); ALKALINE PHOSPHATASE 116 u/l (38-126); ANION GAP 11 (6-22 (CALC)); BILIRUBIN, TOTAL 0.5 mg/dL (0.0-1.4); BUN 18 mg/dL (7-17); BUN/CREATININE RATIO 30 (12-20 (CALC)); CARBON DIOXIDE 24 mmol/l (22-30); CHLORIDE 106 mmol/l (95-108); CREATININE 0.6 mg/dL (0.5-1.0); GFR > 60 ML/MIN (>=60 (CALC)); GFR FOR AFR.AMER. > 60 ML/MIN (>=60 (CALC)); LIPASE 59 u/l (23-300); SGOT/AST 32 u/l (14-36); SODIUM 137 mmol/l (137-146); TOTAL PROTEIN 7.5 g/dL (6.3-8.2)
[2021-03-12 14:47] LABS: POTASSIUM 3.5 mmol/l (3.5-5.1)
--- NOTE | 2021-03-12 15:00 | NUR ---
REMAINS IN RADIOLOGY
--- NOTE | 2021-03-12 16:00 | NUR ---
FIRST DOSE OF GASTROGRAFFIN COMPLETE. PT RESTING ON STRETCHER. NO ACUTE DISTRESS
--- NOTE | 2021-03-12 17:00 | NUR ---
RESTING ON STRETCHER. CALL CANAS WITHIN REACH. AWAITING CT SCAN
--- NOTE | 2021-03-12 18:00 | NUR ---
RESTING ON STRETCHER. AWAITING CT SCAN. CALL CANAS WITHIN REACH
--- NOTE | 2021-03-12 19:11 | NUR ---
PERIANESTHESIA MANAGER REPORTS THAT IV INFILTRATED. CATH REMOVED INTACT
--- NOTE | 2021-03-12 19:19 | NUR ---
LUE WITHOUT SWELLING OR REDNESS. PATIENT DENIES PAIN TO AREA. PT REPORTS SOME NAUSEA. NO DISTRESS
--- NOTE | 2021-03-12 21:58 | NUR ---
REPORT RECEIVED FROM ED NURSE.
--- NOTE | 2021-03-12 21:59 | NUR ---
EMELINA HAQ GIVEN REPORT. PATIENT LEAVING DEPARTMENT IN STABLE CONDITION VIA WHEELCHAIR BY JARED HI.
--- NOTE | 2021-03-12 22:00 | NUR ---
PT ARRIVED TO MED SURG COVID UNIT VIA WC ACCOMPANIED BY ED NURSE JARED HI. PT IS WALKING AROUND THE ROOM, SELF AMBULATING AND APPEARS TO BE STABLE. REPORTS PAIN LEVEL 3/10 ON PAIN SCALE IN RUQ OF ABD RADIATING TO BACK. SCANS/POC REVIEWED WITH PT.
--- NOTE | 2021-03-12 22:00 | NUR ---
REPORT RECEIVED FORM ED NURSE.
[2021-03-12 22:10] VITALS: BP 166/94
--- NOTE | 2021-03-12 22:48 | NUR ---
PT MEDICATED FOR ANXIETY AT THIS TIME. SHE IS RECEIVING PHONE CALLS FROM FAMILY. PT REPORTS THAT SHE WORKED TODAY AT [employer] AND CAME TO THE HOSPITAL FOR RUQ FLANK PAIN FROM WORK. POC DISCUSSED, LABS REVIEWED, SYMPTOMS REVIEWED WITH PT. STOOL OUTPUT WAS LOOSE 1X YESTERDAY, DENIES ANY THIS DAY, DENIES N/V AT THIS TIME. SHE DOES REPORT THAT SHE STARTED HAVING A SLIGHT DRIP AND SORE THROAT THIS MORNING. PT IS NOT ON OXYGEN AT THIS TIME AND SAT LEVELS 97% ON RA
[2021-03-12 23:40] VITALS: BP 141/85
--- NOTE | 2021-03-12 23:40 | NUR ---
PT SWABBED FOR HISTORY OF MRSA, MEDICATIONS AT BEDSIDE BROUGHT FROM HOME WERE COUNTED WITH MYSELF AND PT, SHE HAD 30 TABLETS OF XANAX. THESE WERE PLACED IN A SEALED SECURITY BAG AND LEFT IN THE ROOM WITH HER BELONGINGS. BAG WAS INITIALED BY MYSELF AND THE PT TO HOW MANY PILLS WERE SECURED. URINE HAS ALSO BEEN COLLECTED AND SENT TO LAB. PT DENIED NEEDING ANY OTHER NEEDS AT THIS TIME. REMINDED TO CALL IF ANY OTHER NEEDS ARISE.
[2021-03-12 23:43] LABS: URINE BILIRUBIN - DIPSTICK NEGATIVE (NEGATIVE); URINE BLOOD DIPSTICK NEGATIVE (NEGATIVE); URINE COLOR YELLOW; URINE GLUCOSE - DIPSTICK NEGATIVE (NEGATIVE); URINE KETONE NEGATIVE (NEGATIVE); URINE LEUK ESTERASE NEGATIVE (NEGATIVE); URINE PROTEIN - DIPSTICK NEGATIVE (NEG-TRACE)
[2021-03-12 23:47] LABS: URINE NITRITE - DIPSTICK NEGATIVE (Negative)
[2021-03-13 04:00] VITALS: BP 134/86
--- NOTE | 2021-03-13 04:11 | NUR ---
PT CALLED ASKING FOR SOMETHING FOR PAIN 8/10 ON PAIN SCALE IN RUQ OF ABD AND IN HER THROAT. REPORTS THAT SHE DID NOT HAVE A SORE THROAT YESTERDAY, BUT THAT IT HAS PROGRESSIVELY GOTTEN WORSE OVER NIGHT. I ASSISTED PUTTING SOCKS ON PT FOR COMFORT AND SAFETY. LAB IN TO SEE PT AT THIS TIME. CALL LIGHT W/IN REACH AND PT ENCOURAGED TO CALL IF ANY NEEDS ARISE, SHE VERBALIZED UNDERSTANDING.
[2021-03-13 06:14] LABS: HEMATOCRIT 40.8 % (37.0-47.0); HEMOGLOBIN 13.8 g/dl (12.0-16.0); IMMATURE GRANULOCYTES 0.4 % (0.0-5.0); MEAN CELL VOLUME 94.2 fL CALC (80.0-100.0); MEAN CORPUSCULAR HGB 31.9 pG CALC (26.0-32.0); MEAN CORPUSCULAR HGB CONC 33.8 g/dL CAL (32.0-36.0); NEUT# 3.53 thou/uL (2.00-7.15); RED BLOOD COUNT 4.33 mill/uL (4.20-5.60); RED CELL DISTRI WIDTH 12.5 % (11.5-15.5)
[2021-03-13 06:22] LABS: ALKALINE PHOSPHATASE 113 u/l (38-126); ANION GAP 12 (6-22 (CALC)); BILIRUBIN, TOTAL 0.4 mg/dL (0.0-1.4); BUN 17 mg/dL (7-17); BUN/CREATININE RATIO 27 (12-20 (CALC)); CARBON DIOXIDE 25 mmol/l (22-30); CHLORIDE 103 mmol/l (95-108); CREATININE 0.6 mg/dL (0.5-1.0); GFR > 60 ML/MIN (>=60 (CALC)); GFR FOR AFR.AMER. > 60 ML/MIN (>=60 (CALC)); POTASSIUM 3.8 mmol/l (3.5-5.1); SGOT/AST 29 u/l (14-36); SODIUM 137 mmol/l (137-146); TOTAL PROTEIN 7.1 g/dL (6.3-8.2)
--- NOTE | 2021-03-13 07:10 | NUR ---
REPORT RECEIVED FROM EMELINA HAQ
--- NOTE | 2021-03-13 08:05 | NUR ---
PT RESTING IN SEMI FOWLERS POSITION WATCHING TV,A&O X3;VS OBTAINED AND ASSESSMENT COMPLETED;PT DENIES ANY CURRENT PAIN BUT DOES REPORT A SORE THROAT,PAIN SCALE AND REPORTING EDUCATED;RESPIRATIONS EVEN AND UNLABORED ON RA;NON-PRODUCTIVE COUGH;ABDOMEN SOFT ON PALPATION AND ACTIVE IN ALL 4 QUADRANTS;STRONG PEDAL PULSES;SKIN INTACT;TELE MONITORING IN PLACE;#20G TO MATT FLUSHED AND PATENT,NS STARTED @ 125ML/HR PER ORDER;NPO DIET REINFORCED AND PT VERBALIZES UNDERSTANDING;SEIZURE PRECAUTIONS IN PLACE;PT REMAINS IN AIR/CONTACT PRECAUTIONS DUE TO COVID19 DX;PT DENIES ANY ADDITIONAL NEEDS AND IS ENCOURAGED TO CALL FOR ASSISTANCE IF NEEDED;FALL PRECAUTIONS IN PLACE WITH BED IN THE LOWEST POSITION AND CALL LIGHT IN REACH;WILL CONTINUE TO MONITOR
[2021-03-13 08:59] VITALS: BP 131/84
--- NOTE | 2021-03-13 10:42 | NUR ---
PT TRANSPORTED TO [place] AT THIS TIME VIA WHEELCHAIR ACCOMPANIED BY DAVID BOWENS
[2021-03-13 11:42] VITALS: BP 129/82
--- NOTE | 2021-03-13 12:34 | NUR ---
PT RETURNED TO MED/SURG ROOM 266 IN STABLE CONDITION VIA WHEELCHAIR ACCOMPANIED BY NM STAFF.
--- NOTE | 2021-03-13 13:00 | NUR ---
PT RESTING IN SEMI FOWLERS POSITION;RESPIRATIONS REMAIN EVEN AND UNLABORED ON RA;PT REPORTS ABDOMINAL PAIN RATING 7/10 ON THE PAIN SCALE AND NAUSEA,PT MEDICATED WITH PRN DILAUDID 0.5MG SLOW IVP,ZOFRAN 4MG IVP AND CHLORASEPTIC THROAT LOZENGE PER REQUEST;IV SITE REMAINS PATENT INFUSING @ 125ML/HR;TELE MONITORING IN PLACE;NPO DIET REINFORCED;PT DENIES ANY ADDITIONAL NEEDS;ENCOURAGED TO CALL FOR ASSISTANCE IF NEEDED;CALL LIGHT IN REACH;WILL CONTINUE TO MONITOR
--- NOTE | 2021-03-13 15:20 | NUR ---
PT RESTING IN SEMI FOWLERS POSITION WATCHING TV;RESPIRATIONS EVEN AND UNLABORED ON RA;PT DENIES ANY CURRENT PAIN OR DISCOMFORTS;TELE MONITORING IN PLACE;IV SITE INFUSING NS @ 125ML/HR;NPO DIET REINFORCED;PT DENIES ANY ADDITIONAL NEEDS;CALL LIGHT IN REACH;WILL CONTINUE TO MONITOR
[2021-03-13 15:31] VITALS: BP 118/69
--- NOTE | 2021-03-13 18:09 | NUR ---
PT REPORTS HEADACHE PAIN AND REQUESTS PAIN MEDICATION, PT REPORTS THAT SHE TAKES CAFFEINE MEDICATION AT HOME.CALL PLACED TO MELBA OLIVARES AND NEW ORDERS RECEIVED;WILL CONTINUE TO MONITOR
[2021-03-13 19:00] VITALS: BP 128/75
--- NOTE | 2021-03-13 20:00 | NUR ---
PHYSICAL ASSESMENT COMPLETE. PT CURRENTLY DENIES PAIN OR DISCOMFORT. SCHEDULED MEDICATIONS AND PRN MEDICATION ADMINISTERED, SEE E-MAR. PT DENIES ANY NEEDS AT THIS TIME. PLAN OF CARE REVIEWED, PT DENIES QUESTIONS, VERBALIZES UNDERSTANDING. ITEMS WITHIN REACH, BED LOCKED IN LOW POSITION W/ BEDRAILS UP X2. CALL CANAS WITHIN REACH, AGREES TO CALL PRN.
--- NOTE | 2021-03-13 21:00 | NUR ---
PT C/O OF ANXIETY AND NAUSEA. PRN MEDICATION PROVIDED. WILL CONTINUE TO MONITOR.
[2021-03-14] VITALS: BP 126/77
--- NOTE | 2021-03-14 00:25 | NUR ---
PT LAYING IN BED WITH EYES CLOSED, APPEARS TO BE SLEEPING, APPEARS COMFORTABLE AND IN NO DISTRESS. RESPIRATIONS REGULAR AND UNLABORED. ITEMS REMAIN WITHIN REACH, CALL CANAS REMAINS WITHIN REACH. BED REMAINS LOCKED AND IN LOW POSITION WITH BEDRAILS UP X2. WILL CONTINUE TO MONITOR.
[2021-03-14 04:00] VITALS: BP 125/79
--- NOTE | 2021-03-14 04:00 | NUR ---
PT RESTING IN BED, NO SIGNS OF DISTRESS NOTED, RESP EVEN AND UNLABORED. PT VOICES NO NEEDS OR COMPLAINTS AT THIS TIME. CALL LIGHT IN REACH, CONTINUE TO MONITOR.
[2021-03-14 06:52] LABS: HEMATOCRIT 38.1 % (37.0-47.0); HEMOGLOBIN 12.4 g/dl (12.0-16.0); IMMATURE GRANULOCYTES 0.3 % (0.0-5.0); MEAN CORPUSCULAR HGB 32.2 pG CALC (26.0-32.0); MEAN CORPUSCULAR HGB CONC 32.5 g/dL CAL (32.0-36.0); NEUT# 1.46 thou/uL (2.00-7.15); RED BLOOD COUNT 3.85 mill/uL (4.20-5.60); RED CELL DISTRI WIDTH 12.3 % (11.5-15.5)
[2021-03-14 07:00] LABS: ALBUMIN 3.3 g/dL (3.2-5.0); ALKALINE PHOSPHATASE 106 u/l (38-126); ANION GAP 11 (6-22 (CALC)); BILIRUBIN, TOTAL 0.3 mg/dL (0.0-1.4); BUN 12 mg/dL (7-17); BUN/CREATININE RATIO 20 (12-20 (CALC)); C-REACTIVE PROTEIN < 0.5 mg/dL (0-0.9); CARBON DIOXIDE 24 mmol/l (22-30); CHLORIDE 106 mmol/l (95-108); CREATININE 0.6 mg/dL (0.5-1.0); GFR > 60 ML/MIN (>=60 (CALC)); GFR FOR AFR.AMER. > 60 ML/MIN (>=60 (CALC)); POTASSIUM 3.3 mmol/l (3.5-5.1); SGOT/AST 29 u/l (14-36); SODIUM 138 mmol/l (137-146)
--- NOTE | 2021-03-14 07:05 | NUR ---
REPORT RECEIVED FROM EMELINA CORTES
--- NOTE | 2021-03-14 09:14 | NUR ---
PT note Patient is screened for PT intervention and no needs are identified at this time
[2021-03-14 09:50] VITALS: BP 134/74
--- NOTE | 2021-03-14 09:50 | NUR ---
PT RESTING IN SEMI FOWLERS POSITION,A&O X3;VS OBTAINED AND ASSESSMENT COMPLETED;PT REPORTS RIGHT FLANK PAIN RATING 7/10 ON THE PAIN SCALE AND ANXIETY,PT MEDICATED WITH PRN MORPHINE 4MG SLOW IVP AND XANAX 1MG PO;RESPIRATIONS EVEN AND UNLABORED ON RA,CLEAR LUNG SOUNDS WITH NON-PRODUCTIVE COUGH;ABDOMEN SOFT ON PALPATION AND ACTIVE IN ALL 4 QUADRANTS;STRONG PEDAL PULSES;SKIN INTACT;TELE MONITORING IN PLACE;#20G TO MATT INFUSING NS @125ML/HR,SITE APPEARS HEALTHY;SEIZURE PRECAUTIONS IN PLACE;PT DENIES ANY ADDITIONAL NEEDS AND IS ENCOURAGED TO CALL FOR ASSISTANCE IF NEEDED;PT REMAINS IN AIR/CONTACT PRECAUTIONS DUE TO COVID19 DX;NPO DIET ALSO REINFORCED;CALL LIGHT IN REACH;WILL CONTINUE TO MONITOR
--- NOTE | 2021-03-14 11:55 | NUR ---
PT RESTING IN SEMI FOWLERS POSITION;RESPIRATIONS EVEN AND UNLABORED ON RA;PT DENIES ANY CURRENT PAIN OR DISCOMFORTS;TELE MONITORING IN PLACE;IV SITE PATENT TO MATT;LOW FAT DIET PROVIDED PER ORDER;PT DENIES ANY ADDITIONAL NEEDS;ENCOURAGED TO CALL FOR ASSISTANCE IF NEEDED;;CALL LIGHT IN REACH;WILL CONTINUE TO MONITOR
[2021-03-14 12:10] VITALS: BP 139/73
--- NOTE | 2021-03-14 13:42 | NUR ---
PT MEDICATED WITH PRN ZOFRAN 4MG IVP FOR NAUSEA AT THIS TIME,WILL CONTINUE TO MONITOR FOR EFFECTIVENES
--- NOTE | 2021-03-14 15:25 | NUR ---
PT RESTING IN SEMI FOWLERS POSITION;RESPIRATIONS EVEN AND UNLABORED ON RA;PT DENIES ANY CURRENT PAIN OR DISCOMFORTS;TELE MONITORING IN PLACE;IV SITE TO MATT INFUSING NS WITH EASE PER ORDER;ALL SAFETY PRECAUTIONS REMAIN IN PLACE WITH BED IN THE LOWEST POSITION AND CALL LIGHT IN REACH;WILL CONTINUE TO MONITOR
[2021-03-14 19:00] VITALS: BP 133/82
[2021-03-15] VITALS: BP 136/73
[2021-03-15 04:00] VITALS: BP 123/63
[2021-03-15 05:53] LABS: HEMOGLOBIN 12.9 g/dl (12.0-16.0); MEAN CELL VOLUME 94.8 fL CALC (80.0-100.0); MEAN CORPUSCULAR HGB 32.2 pG CALC (26.0-32.0); MEAN CORPUSCULAR HGB CONC 33.9 g/dL CAL (32.0-36.0); NEUT# 1.65 thou/uL (2.00-7.15); RED BLOOD COUNT 4.01 mill/uL (4.20-5.60); RED CELL DISTRI WIDTH 12.3 % (11.5-15.5)
[2021-03-15 06:00] LABS: ALBUMIN 3.4 g/dL (3.2-5.0); ALKALINE PHOSPHATASE 104 u/l (38-126); ANION GAP 11 (6-22 (CALC)); BILIRUBIN, TOTAL 0.2 mg/dL (0.0-1.4); BUN 11 mg/dL (7-17); BUN/CREATININE RATIO 19 (12-20 (CALC)); CARBON DIOXIDE 25 mmol/l (22-30); CHLORIDE 107 mmol/l (95-108); CREATININE 0.6 mg/dL (0.5-1.0); GFR > 60 ML/MIN (>=60 (CALC)); GFR FOR AFR.AMER. > 60 ML/MIN (>=60 (CALC)); POTASSIUM 3.3 mmol/l (3.5-5.1); SGOT/AST 30 u/l (14-36); SODIUM 140 mmol/l (137-146); TOTAL PROTEIN 6.4 g/dL (6.3-8.2)
[2021-03-15 07:40] VITALS: BP 123/60
--- NOTE | 2021-03-15 07:40 | NUR ---
PATIENT RESTING IN BED AND IN AIRBORNE ISOLATION FOR COVID. SPO2 AT THIS TIME IS 97% ON ROOM AIR. PATIENT DENIES PAIN AT THIS TIME. SIDERAILS ARE PADDED DUE TO SEIZURE HISTORY. OFFICER CAPTAIN DONE AT THIS TIME SEE INTERVENTIONS.
--- NOTE | 2021-03-15 10:02 | NUR ---
PATIENT COMPLAINING OF GENERALIZED PAIN AND ABD. PAIN PATIENT RATES PAIN AT "6"ON THE PAIN SCALE OF 0-10. 4MG OF IV MORPHINE GIVEN AT THIS TIME. SIDERAILS ARE UP CALL LIGHT IS WITHIN REACH. WILL CONTINUE TO MONITOR.
[2021-03-15 10:30] VITALS: BP 134/80
--- NOTE | 2021-03-15 10:52 | NUR ---
PATIENT COMPLAINING OF NAUSEA AT THIS TIME. 4MG OF ZOFRAN GIVEN WILL CONTINUE TO MONITOR.
--- NOTE | 2021-03-15 12:09 | NUR ---
PATIENT LAYING IN BED AT THIS TIME. SIDERAILS ARE UP AND PADDED STATES HER PAIN IS A 2 AT THIS TIME AND NAUSEA HAS STOPPED. CALL LIGHT IS WITHIN REACH.
[2021-03-15 14:00] VITALS: BP 156/83
--- NOTE | 2021-03-15 16:15 | NUR ---
ASSISTED PATIENT TO BATHROOM PATIENT STATES SHE HAS NO PAIN AT THIS TIME AND REQUESTING A SNACK AND ONE PROVIDED. PATIENT ON RA AND DENIES SHORTNESS OF BREATH AT THIS TIME.
--- NOTE | 2021-03-15 18:55 | NUR ---
REPORT FROM YANN TARANGO. ASSUMED PT CARE.
[2021-03-15 19:00] VITALS: BP 140/86
--- NOTE | 2021-03-15 21:50 | NUR ---
PT HOME MEDICATIONS NOTED IN ROOM IN SEALED INVENTORY BAG THAT WAS OPENED BY PT. PT ADMITS TO TAKING HOME XANAX 2 TABLETS LAST NIGHT 03/14/21. HOME MEDICATIONS PLACED INTO ANOTHER SEALED BAG AND REMOVED FROM ROOM. PT APOLOGETIC. EDUCATED PT AT THIS TIME. PT VERBALIZED UNDERSTANDING.
--- NOTE | 2021-03-16 00:40 | NUR ---
PT RESTING IN BED. NO APPARENT DISTRESS NOTED. RESPIRATIONS EVEN AND UNLABORED. IVF INFUSING WITHOUT DIFFICULTY. CALL LIGHT WITHIN REACH. WILL CONTINUE TO MONITOR.
[2021-03-16 04:00] VITALS: BP 135/75
--- NOTE | 2021-03-16 04:44 | NUR ---
OVERCOILER AT BEDSIDE TO OBTAIN LABS.
--- NOTE | 2021-03-16 05:12 | NUR ---
MEDICATED FOR GENERALIZED PAIN AND NAUSEA AT THIS TIME. NO APPARENT DISTRESS NOTED. PT DENIES ANY OTHER CURRENT WANTS OR NEEDS. CALL LIGHT WITHIN REACH. WILL CONTINUE TO MONITOR.
[2021-03-16 05:41] LABS: HEMATOCRIT 36.6 % (37.0-47.0); HEMOGLOBIN 12.4 g/dl (12.0-16.0); MEAN CELL VOLUME 93.6 fL CALC (80.0-100.0); MEAN CORPUSCULAR HGB 31.7 pG CALC (26.0-32.0); MEAN CORPUSCULAR HGB CONC 33.9 g/dL CAL (32.0-36.0); NEUT# 2.05 thou/uL (2.00-7.15); RED BLOOD COUNT 3.91 mill/uL (4.20-5.60); RED CELL DISTRI WIDTH 12.3 % (11.5-15.5)
[2021-03-16 06:04] LABS: ALBUMIN 3.5 g/dL (3.2-5.0); ALKALINE PHOSPHATASE 99 u/l (38-126); ANION GAP 10 (6-22 (CALC)); BILIRUBIN, TOTAL 0.2 mg/dL (0.0-1.4); BUN 9 mg/dL (7-17); BUN/CREATININE RATIO 18 (12-20 (CALC)); C-REACTIVE PROTEIN < 0.5 mg/dL (0-0.9); CARBON DIOXIDE 25 mmol/l (22-30); CHLORIDE 105 mmol/l (95-108); CREATININE 0.5 mg/dL (0.5-1.0); GFR > 60 ML/MIN (>=60 (CALC)); GFR FOR AFR.AMER. > 60 ML/MIN (>=60 (CALC)); POTASSIUM 3.3 mmol/l (3.5-5.1); SGOT/AST 26 u/l (14-36); SODIUM 137 mmol/l (137-146); TOTAL PROTEIN 6.4 g/dL (6.3-8.2)
--- NOTE | 2021-03-16 08:00 | NUR ---
PT RESTING IN THE BED AXOX3. IV INFUSING, NOTED NO SOB AT THIS TIME. ASSITED THE PT OUT OF THE BED TO THE CHAIR. NOTED DRY NON PRODUCTIVE COUGH. STATES "I AM SHORT OF BREATH" EDUCATED ON THE VENTOLIN PUFFER. PT STATES THE PUFFER WORKED AND NO SOB NOTED AT THIS TIME. CALL LIGHT IN REACH, TEDS HOSE ON THE PT. CALL LIGHT IN REACH. WILL CONTINUE TO MONIOTOR THE PATIENT.
[2021-03-16] MEDS ORDERED: DEXAMETHASON6 MG PO (09:59)
[2021-03-16] MEDS ORDERED: ZITHROMAX250 MG PO (10:00)
[2021-03-16] MEDS ORDERED: ULTRAM50 M1 PO (10:01)
--- NOTE | 2021-03-16 12:15 | NUR ---
HL REMOVED SCRIPT FOR ULTRAM GIVEN TO THE PATIENT. DISCHARGE ORDERS GIVEN UNDERSTOOD AND SIGNED BY THE PT . PT LEFT VIA WHEELCHAIR TO GO HOME TO [place] FOR 14 DAYS.
== END 2021-03-16 13:01 | disposition home or self-care (01) ==
LOC: ED 13:06 → ED-I 20:03 → ED 20:24 → MS2 20:25
PROVIDERS: Emergency Medicine; Nurse Practitioner; ADMIT Internal Medicine; ATTEND Internal Medicine
DX: U07.1 COVID-19 (principal); K81.1 Chronic cholecystitis; G40.909 Epilepsy, unspecified, not intractable, without status epilepticus; K21.9 Gastro-esophageal reflux disease without esophagitis; F41.9 Anxiety disorder, unspecified; E03.9 Hypothyroidism, unspecified; F31.9 Bipolar disorder, unspecified; E78.5 Hyperlipidemia, unspecified; Z87.820 Personal history of traumatic brain injury
CPT/HCPCS: A9537; G0378; J1650; J2805; Q9967

== ENCOUNTER 2021-03-30 06:58 | Day surgery (SDC) | payer OTHER ==
[~2021-03-30] VITALS: Ht 157.5 cm; Wt 68.9 kg
[~2021-03-30 06:58] MED LIST changes: +DEXAMETHASON6 MG PO
[2021-03-30 10:29] VITALS: BP 137/76
== END 2021-03-30 10:45 | disposition home or self-care (01) ==
LOC: ORM 06:58
PROVIDERS: ATTEND Surgery
DX: K81.1 Chronic cholecystitis (principal); U07.1 COVID-19; F41.9 Anxiety disorder, unspecified; G40.909 Epilepsy, unspecified, not intractable, without status epilepticus; F31.9 Bipolar disorder, unspecified; E03.9 Hypothyroidism, unspecified; E78.5 Hyperlipidemia, unspecified; K21.9 Gastro-esophageal reflux disease without esophagitis; Z87.820 Personal history of traumatic brain injury
CPT/HCPCS: J0131; J2710

== ENCOUNTER 2021-07-05 17:31 | Emergency (ER) | payer OTHER ==
[~2021-07-05] VITALS: Ht 157.5 cm; Wt 68.0 kg
[2021-07-05] MEDS ORDERED: ALPRAZOLAM1 MG PO (17:55)
[2021-07-05] MEDS ORDERED: BUT/APAP/CAF PO (17:58)
[2021-07-05 18:01] LABS: HEMATOCRIT 41.8 % (37.0-47.0); MEAN CELL VOLUME 93.9 fL CALC (80.0-100.0); MEAN CORPUSCULAR HGB 31.5 pG CALC (26.0-32.0); MEAN CORPUSCULAR HGB CONC 33.5 g/dL CAL (32.0-36.0); NEUT# 3.76 thou/uL (2.00-7.15); RED BLOOD COUNT 4.45 mill/uL (4.20-5.60)
[2021-07-05 18:13] LABS: ALKALINE PHOSPHATASE 143 u/l (38-126); BUN 15 mg/dL (7-17); BUN/CREATININE RATIO 34 (12-20 (CALC)); CARBON DIOXIDE 23 mmol/l (22-30); CHLORIDE 109 mmol/l (95-108); CREATININE 0.4 mg/dL (0.5-1.0); GFR > 60 ML/MIN (>=60 (CALC)); GFR FOR AFR.AMER. > 60 ML/MIN (>=60 (CALC)); LIPASE 53 u/l (23-300); SODIUM 141 mmol/l (137-146)
[2021-07-05 18:14] LABS: ALBUMIN 4.8 g/dL (3.2-5.0); ANION GAP 14 (6-22 (CALC)); BILIRUBIN, TOTAL 1.9 mg/dL (0.0-1.4); POTASSIUM 5.1 mmol/l (3.5-5.1); SGOT/AST 62 u/l (14-36); TOTAL PROTEIN 8.8 g/dL (6.3-8.2)
[2021-07-05 18:34] VITALS: BP 140/83
== END 2021-07-05 20:11 | disposition home or self-care (01) ==
LOC: ED 17:31
PROVIDERS: Family Medicine
DX: G40.409 Other generalized epilepsy and epileptic syndromes, not intractable, without status epilepticus (principal); F41.9 Anxiety disorder, unspecified; F31.9 Bipolar disorder, unspecified; E03.9 Hypothyroidism, unspecified; E78.00 Pure hypercholesterolemia, unspecified; K21.9 Gastro-esophageal reflux disease without esophagitis; Z87.820 Personal history of traumatic brain injury
CPT/HCPCS: J1953

== ENCOUNTER 2021-08-28 13:51 | Emergency (ER) | payer OTHER ==
[~2021-08-28] VITALS: Ht 157.5 cm; Wt 68.1 kg
[~2021-08-28 13:51] MED LIST changes: +ALPRAZOLAM1 MG PO; +BUT/APAP/CAF PO
[2021-08-28 14:13] LABS: HEMATOCRIT 37.5 % (37.0-47.0); HEMOGLOBIN 13.2 g/dl (12.0-16.0); MEAN CELL VOLUME 90.8 fL CALC (80.0-100.0); MEAN CORPUSCULAR HGB CONC 35.2 g/dL CAL (32.0-36.0); NEUT# 3.99 thou/uL (2.00-7.15); RED BLOOD COUNT 4.13 mill/uL (4.20-5.60); RED CELL DISTRI WIDTH 12.6 % (11.5-15.5)
[2021-08-28 14:30] LABS: ALKALINE PHOSPHATASE 135 u/l (38-126); ANION GAP 10 (6-22 (CALC)); BILIRUBIN, TOTAL 0.6 mg/dL (0.0-1.4); BUN 16 mg/dL (7-17); BUN/CREATININE RATIO 30 (12-20 (CALC)); CARBON DIOXIDE 27 mmol/l (22-30); CHLORIDE 107 mmol/l (95-108); CREATININE 0.5 mg/dL (0.5-1.0); GFR > 60 ML/MIN (>=60 (CALC)); GFR FOR AFR.AMER. > 60 ML/MIN (>=60 (CALC)); POTASSIUM 3.7 mmol/l (3.5-5.1); SGOT/AST 27 u/l (14-36); SODIUM 140 mmol/l (137-146); TOTAL PROTEIN 7.5 g/dL (6.3-8.2)
[2021-08-28] MEDS ORDERED: ATIVAN1 MG PO (16:02)
[2021-08-28 16:11] VITALS: BP 140/73
== END 2021-08-28 16:25 | disposition home or self-care (01) ==
LOC: ED 13:51
PROVIDERS: Family Medicine
DX: G40.909 Epilepsy, unspecified, not intractable, without status epilepticus (principal); T42.4X6A Underdosing of benzodiazepines, initial encounter; F41.9 Anxiety disorder, unspecified; F31.9 Bipolar disorder, unspecified; E03.9 Hypothyroidism, unspecified; E78.00 Pure hypercholesterolemia, unspecified; K21.9 Gastro-esophageal reflux disease without esophagitis; Z91.128 Patient's intentional underdosing of medication regimen for other reason; Z87.820 Personal history of traumatic brain injury
CPT/HCPCS: J1953

== ENCOUNTER 2021-10-02 16:54 | Emergency (ER) | payer OTHER ==
[~2021-10-02] VITALS: Ht 157.5 cm; Wt 70.0 kg
[~2021-10-02 16:54] MED LIST changes: +ATIVAN1 MG PO
[2021-10-02 19:01] LABS: HEMATOCRIT 42.1 % (37.0-47.0); IMMATURE GRANULOCYTES 0.1 % (0.0-5.0); MEAN CORPUSCULAR HGB 32.3 pG CALC (26.0-32.0); MEAN CORPUSCULAR HGB CONC 33.3 g/dL CAL (32.0-36.0); NEUT# 4.53 thou/uL (2.00-7.15); RED BLOOD COUNT 4.34 mill/uL (4.20-5.60); RED CELL DISTRI WIDTH 12.6 % (11.5-15.5)
[2021-10-02 19:23] LABS: ALBUMIN 4.1 g/dL (3.2-5.0); ALKALINE PHOSPHATASE 147 u/l (38-126); ANION GAP 12 (6-22 (CALC)); BILIRUBIN, TOTAL 0.5 mg/dL (0.0-1.4); BUN 13 mg/dL (7-17); BUN/CREATININE RATIO 25 (12-20 (CALC)); CARBON DIOXIDE 26 mmol/l (22-30); CHLORIDE 107 mmol/l (95-108); CREATININE 0.5 mg/dL (0.5-1.0); GFR > 60 ML/MIN (>=60 (CALC)); GFR FOR AFR.AMER. > 60 ML/MIN (>=60 (CALC)); POTASSIUM 3.9 mmol/l (3.5-5.1); SGOT/AST 28 u/l (14-36); SODIUM 140 mmol/l (137-146); TOTAL PROTEIN 7.5 g/dL (6.3-8.2)
[2021-10-02] MEDS ORDERED: TORADOL PO (20:27)
[2021-10-02] MEDS ORDERED: ALBUTEROL108 MCG/AC INHW/SPAC (20:27)
[2021-10-02] MEDS ORDERED: AFRIN NASAL SP0.05 % (20:27)
[2021-10-02 22:43] VITALS: BP 133/94
== END 2021-10-02 22:50 | disposition home or self-care (01) ==
LOC: ED 16:54
PROVIDERS: Family Medicine
DX: J06.9 Acute upper respiratory infection, unspecified (principal); G40.909 Epilepsy, unspecified, not intractable, without status epilepticus; F41.9 Anxiety disorder, unspecified; F31.9 Bipolar disorder, unspecified; E03.9 Hypothyroidism, unspecified; E78.00 Pure hypercholesterolemia, unspecified; K21.9 Gastro-esophageal reflux disease without esophagitis; Z87.820 Personal history of traumatic brain injury; Z20.822 Contact with and (suspected) exposure to COVID-19

== ENCOUNTER 2021-10-04 07:11 | Emergency (ER) | payer OTHER ==
[~2021-10-04] VITALS: Ht 157.5 cm; Wt 70.9 kg
[~2021-10-04 07:11] MED LIST changes: +AFRIN NASAL SP0.05 %; +ALBUTEROL108 MCG/AC INHW/SPAC
[2021-10-04] MEDS ORDERED: VENLAFAXINE150 M1 PO (07:37)
[2021-10-04] MEDS ORDERED: LEVOTHYROXIN50 MCG PO (07:37)
[2021-10-04 08:36] LABS: HEMATOCRIT 37.2 % (37.0-47.0); HEMOGLOBIN 12.5 g/dl (12.0-16.0); IMMATURE GRANULOCYTES 0.2 % (0.0-5.0); MEAN CELL VOLUME 96.4 fL CALC (80.0-100.0); MEAN CORPUSCULAR HGB 32.4 pG CALC (26.0-32.0); MEAN CORPUSCULAR HGB CONC 33.6 g/dL CAL (32.0-36.0); NEUT# 4.92 thou/uL (2.00-7.15); RED BLOOD COUNT 3.86 mill/uL (4.20-5.60); RED CELL DISTRI WIDTH 12.6 % (11.5-15.5)
[2021-10-04 08:52] LABS: ALBUMIN 3.8 g/dL (3.2-5.0); ALKALINE PHOSPHATASE 135 u/l (38-126); ANION GAP 12 (6-22 (CALC)); BILIRUBIN, TOTAL 0.4 mg/dL (0.0-1.4); BUN 16 mg/dL (7-17); BUN/CREATININE RATIO 34 (12-20 (CALC)); CARBON DIOXIDE 25 mmol/l (22-30); CHLORIDE 106 mmol/l (95-108); CREATININE 0.5 mg/dL (0.5-1.0); GFR > 60 ML/MIN (>=60 (CALC)); GFR FOR AFR.AMER. > 60 ML/MIN (>=60 (CALC)); POTASSIUM 3.4 mmol/l (3.5-5.1); SGOT/AST 36 u/l (14-36); SODIUM 140 mmol/l (137-146); TOTAL PROTEIN 7.2 g/dL (6.3-8.2)
[2021-10-04 09:05] LABS: MYOGLOBIN 13 ng/mL (0 - 62)
[2021-10-04] MEDS ORDERED: ZITHROMAX250 MG PO (09:20)
[2021-10-04] MEDS ORDERED: FLONASE AL50 MCG/ACT (09:20)
[2021-10-04 09:40] VITALS: BP 130/70
[2021-10-05] MEDS ORDERED: PROAIR HFA IN (15:35)
== END 2021-10-04 09:59 | disposition home or self-care (01) ==
LOC: ED 07:11
PROVIDERS: Emergency Medicine
DX: J06.9 Acute upper respiratory infection, unspecified (principal); G40.909 Epilepsy, unspecified, not intractable, without status epilepticus; F41.9 Anxiety disorder, unspecified; F31.9 Bipolar disorder, unspecified; E03.9 Hypothyroidism, unspecified; K21.9 Gastro-esophageal reflux disease without esophagitis; E78.00 Pure hypercholesterolemia, unspecified; Z87.820 Personal history of traumatic brain injury; Z20.822 Contact with and (suspected) exposure to COVID-19

== ENCOUNTER 2021-10-05 10:27 | Emergency (ER) | payer OTHER ==
[~2021-10-05] VITALS: Ht 157.5 cm; Wt 71.0 kg
[~2021-10-05 10:27] MED LIST changes: +FLONASE AL50 MCG/ACT; +VENLAFAXINE150 M1 PO
[2021-10-05 11:55] LABS: HEMATOCRIT 37.8 % (37.0-47.0); HEMOGLOBIN 12.7 g/dl (12.0-16.0); IMMATURE GRANULOCYTES 0.1 % (0.0-5.0); MEAN CELL VOLUME 96.2 fL CALC (80.0-100.0); MEAN CORPUSCULAR HGB 32.3 pG CALC (26.0-32.0); MEAN CORPUSCULAR HGB CONC 33.6 g/dL CAL (32.0-36.0); NEUT# 5.34 thou/uL (2.00-7.15); RED BLOOD COUNT 3.93 mill/uL (4.20-5.60); RED CELL DISTRI WIDTH 12.6 % (11.5-15.5)
[2021-10-05 12:04] LABS: ALBUMIN 3.9 g/dL (3.2-5.0); ALKALINE PHOSPHATASE 134 u/l (38-126); ANION GAP 9 (6-22 (CALC)); BUN 15 mg/dL (7-17); BUN/CREATININE RATIO 30 (12-20 (CALC)); CARBON DIOXIDE 27 mmol/l (22-30); CHLORIDE 106 mmol/l (95-108); CREATININE 0.5 mg/dL (0.5-1.0); GFR > 60 ML/MIN (>=60 (CALC)); GFR FOR AFR.AMER. > 60 ML/MIN (>=60 (CALC)); POTASSIUM 3.1 mmol/l (3.5-5.1); SGOT/AST 33 u/l (14-36); SODIUM 139 mmol/l (137-146); TOTAL PROTEIN 7.3 g/dL (6.3-8.2)
[2021-10-05 12:05] LABS: BILIRUBIN, TOTAL 0.7 mg/dL (0.0-1.4)
[2021-10-05] MEDS ORDERED: PROAIR HFA IN (15:35)
[2021-10-05 16:22] VITALS: BP 138/77
== END 2021-10-06 16:33 | disposition home or self-care (01) ==
LOC: ED 10:27
PROVIDERS: Emergency Medicine
DX: J18.9 Pneumonia, unspecified organism (principal); G40.909 Epilepsy, unspecified, not intractable, without status epilepticus; F41.9 Anxiety disorder, unspecified; F31.9 Bipolar disorder, unspecified; E03.9 Hypothyroidism, unspecified; E78.00 Pure hypercholesterolemia, unspecified; K21.9 Gastro-esophageal reflux disease without esophagitis; Z87.820 Personal history of traumatic brain injury; Z20.822 Contact with and (suspected) exposure to COVID-19
CPT/HCPCS: Q9967

== ENCOUNTER 2021-11-16 11:36 | Observation (INO) | payer OTHER ==
[~2021-11-16] VITALS: Ht 165.1 cm; Wt 73.5 kg
[~2021-11-16 11:36] MED LIST changes: +PROAIR HFA IN
--- NOTE | 2021-11-16 12:00 | NUR ---
PT TO ROOM VIA WHEELCHAIR. PT TRANSFERRED TO STRETCHER WITH STAND BY ASSIST. SEIZURE IMMEDIATLEY AFTER TRANSFER. MD AT BEDSIDE. SEIZURE PRECAUTIONS IN PLACE
[2021-11-16 13:04] LABS: HEMATOCRIT 41.1 % (37.0-47.0); HEMOGLOBIN 13.8 g/dl (12.0-16.0); MEAN CELL VOLUME 95.8 fL CALC (80.0-100.0); MEAN CORPUSCULAR HGB 32.2 pG CALC (26.0-32.0); MEAN CORPUSCULAR HGB CONC 33.6 g/dL CAL (32.0-36.0); NEUT# 3.62 thou/uL (2.00-7.15); RED BLOOD COUNT 4.29 mill/uL (4.20-5.60); RED CELL DISTRI WIDTH 12.4 % (11.5-15.5)
[2021-11-16 13:20] LABS: ALBUMIN 4.2 g/dL (3.2-5.0); ALKALINE PHOSPHATASE 117 u/l (38-126); ANION GAP 14 (6-22 (CALC)); BUN 14 mg/dL (7-17); BUN/CREATININE RATIO 29 (12-20 (CALC)); CARBON DIOXIDE 24 mmol/l (22-30); CHLORIDE 106 mmol/l (95-108); CREATININE 0.5 mg/dL (0.5-1.0); GFR > 60 ML/MIN (>=60 (CALC)); GFR FOR AFR.AMER. > 60 ML/MIN (>=60 (CALC)); LIPASE 67 u/l (23-300); MAGNESIUM 1.9 mg/dL (1.6-2.3); POTASSIUM 4.1 mmol/l (3.5-5.1); SGOT/AST 29 u/l (14-36); SODIUM 140 mmol/l (137-146); TOTAL PROTEIN 7.4 g/dL (6.3-8.2)
[2021-11-16 13:21] LABS: BILIRUBIN, TOTAL 0.4 mg/dL (0.0-1.4)
--- NOTE | 2021-11-16 16:46 | NUR ---
CONSENT SIGNED FOR LUMBAR PUNCTURE
[2021-11-16 17:17] LABS: URINE BILIRUBIN - DIPSTICK NEGATIVE (NEGATIVE); URINE BLOOD DIPSTICK NEGATIVE (NEGATIVE); URINE COLOR YELLOW; URINE GLUCOSE - DIPSTICK NEGATIVE (NEGATIVE); URINE KETONE NEGATIVE (NEGATIVE); URINE LEUK ESTERASE NEGATIVE (NEGATIVE); URINE PH 6.5 (4.5-8.0); URINE PROTEIN - DIPSTICK NEGATIVE (NEG-TRACE); URINE UROBILINOGEN - DIPSTICK 0.2 E.U./dL (0.2)
[2021-11-16 17:20] LABS: URINE NITRITE - DIPSTICK NEGATIVE (Negative)
[2021-11-16] MEDS ORDERED: ALL DAY ALLG10 MG PO (17:30)
--- NOTE | 2021-11-16 19:30 | NUR ---
Reassessment of patient completed. No distress noted.
--- NOTE | 2021-11-16 20:02 | NUR ---
Reassessment of patient completed. No distress noted.
[2021-11-16 21:00] VITALS: BP 140/96
--- NOTE | 2021-11-16 21:00 | NUR ---
RECIEVED REPORT FROM ER NURSE
--- NOTE | 2021-11-16 21:01 | NUR ---
PT ARRIVED TO [facility] ROOM 270 VIA STRETCHER ACCOMPAINED BY ER STAFF. PT IS A/OX3. ASSESSMENT COMPLETED. RESPIRATIONS EVEN AND UNLABORED WITH NO DISTRESS NOTED. LUNG SOUNDS CLEAR. HEART RHYTHM NORMAL WITH TELE IN PLACE. ([id number]) BOWEL SOUNDS ACTIVE, LBM 11/12/21. PT STATES THIS IS HER NORMAL AND TAKES STOOL SOFTNERS AT TIMES. PULSES STRONG. #20G RH FLUSHED,IVF STARTED PER ORDER. SITE HEALTHY AND PATENT. SKIN INTACT. PT COMPLAINS OF 9/10 NECK PAIN, ICE PACK ADMINISTERED. ELEONORA NOTED, ALLERGY BAND AND FALL RISK BAND APPLIED. PT INFRORMED OF CALLING WHEN NEEDED TO GET OUT OF BED. PT VERBLAIZED UNDERSTANDING. PT ORIENTED TO ROOM AND CALL SYSTEM. ALL SAFTEY PRECAUTIONS IN PLACE WITH SIEZURE PRECAUTIONS IN PLACE. WILL CONTINUE TO MONITOR.
--- NOTE | 2021-11-16 21:10 | NUR ---
PT ARRIVED TO [facility] ROOM 270 VIA STRETCHER ACCOMPAINED BY ER STAFF. PT IS A/OX3. ASSESSMENT COMPLETED. RESPIRATIONS EVEN AND UNLABORED WITH NO DISTRESS NOTED. LUNG SOUNDS CLEAR. HEART RHYTHM NORMAL WITH TELE IN PLACE. ([id number]) ESPINOZA SOUNDS ACTIVE, LBM 11/12/21. PT STATES THIS IS HER NORMAL AND TAKES STOOL SOFTNERS AT TIMES. PULSES STRONG. #20G RH FLUSHED,IVF STARTED PER ORDER. SITE HEALTHY AND PATENT. SKIN INTACT. PT COMPLAINS OF 9/10 NECK PAIN, ICE PACK ADMINISTERED. ALERGICHANDA NOTED, ALLERGY BAND AND FALL RISK BAND APPLIED. PT INFRORMED OF CALLING WHEN NEEDED TO GET OUT OF BED. PT VERBLAIZED UNDERSTANDING. PT ORIENTED TO ROOM AND CALL SYSTEM. ALL SAFTEY PRECAUTIONS IN PLACE WITH SIEZURE PRECAUTIONS IN PLACE. WILL CONTINUE TO MONITOR.
--- NOTE | 2021-11-16 21:12 | NUR ---
REPORT CALLED TO FLOOR PT TRANSFERRED VIA STETCHER WITHOUT INCIDENCE
--- NOTE | 2021-11-16 23:21 | NUR ---
PT SLEEPING IN SEMI FOWLERS POSITION. TELE MONITORING IN PLACE. NO SIGNS OF DISTRESS. SEIZURE PRECAUTIONS IN PLACE WITH CALL LIGHT AT BEDSIDE. WILL CONTINUE TO MONITOR
[2021-11-17] VITALS: BP 108/64
--- NOTE | 2021-11-17 00:08 | NUR ---
PT SLEEPING IN SEMI FOWLERS POSITION. RESPIRATIONS EVEN AND UNLABORED ON ROOM AIR. TELE MONITORING IN PLACE. #20G RH INFUSING WITH IVF PER ORDER, SITE PATENT. NO SIGNS OF ANY PAINS. ALL SAFTEY PRECAUTIONS ARE IN PLACE WITH CALL LIGHT IN REACH. WILL CONTINUE TO MONITOR.
--- NOTE | 2021-11-17 03:19 | NUR ---
PT COMPLAINS OF HEADACHE AT THIS TIME. PT STATES SHE GETS HEADACHE BEFORE EXPERIENCING SEIZURE. TYLENOL AND XANAX ADMINISTERED AT THIS TIME. REPSIRAITONS EVEN AND UNLABORED. TELE MONITORING IN PLACE. SEIZURE PRECAUTIONS IN PLACE. ALL SAFTEY PRECAUTIONS IN PLACE WITH CALL LIGHT IN REACH. WILL CONTINUE TO MONITOR
[2021-11-17 04:00] VITALS: BP 100/70
--- NOTE | 2021-11-17 04:09 | NUR ---
PT STATES XANAX HAS HELPED BUT HEADACHE IS STILL PRESENT. LIGHTS TURNED OFF TO HELP. TYLENOL TO BE GIVEN MORE TIME. RESPIRATIONS EVEN AND UNLABORED ON ROOM AIR. TELE MONITORING IN PLACE. PT DENIES OF ANY ADDITIONAL NEEDS. ALL SAFTEY PRECAUTIONS IN PLACE WITH CALL LIGHT IN REACH. SIDE RAILS PADDED. WILL CONTINUE TO MONITOR
[2021-11-17 04:44] LABS: HEMATOCRIT 41.5 % (37.0-47.0); HEMOGLOBIN 13.7 g/dl (12.0-16.0); MEAN CELL VOLUME 96.1 fL CALC (80.0-100.0); MEAN CORPUSCULAR HGB 31.7 pG CALC (26.0-32.0); RED BLOOD COUNT 4.32 mill/uL (4.20-5.60); RED CELL DISTRI WIDTH 12.2 % (11.5-15.5)
[2021-11-17 05:11] LABS: ANION GAP 11 (6-22 (CALC)); BUN 14 mg/dL (7-17); BUN/CREATININE RATIO 24 (12-20 (CALC)); CARBON DIOXIDE 26 mmol/l (22-30); CHLORIDE 105 mmol/l (95-108); CREATININE 0.6 mg/dL (0.5-1.0); GFR > 60 ML/MIN (>=60 (CALC)); GFR FOR AFR.AMER. > 60 ML/MIN (>=60 (CALC)); MAGNESIUM 1.8 mg/dL (1.6-2.3); POTASSIUM 3.8 mmol/l (3.5-5.1); SODIUM 138 mmol/l (137-146)
--- NOTE | 2021-11-17 05:24 | NUR ---
PT STATES TYLENOL HAS NOT HELP. VERBAL ORDERS FROM ELISE DON FOR FIORICET X1 DOSE. ORDER FAXED TO PHARMACY.
--- NOTE | 2021-11-17 07:00 | NUR ---
SHIFT CHANGE REPORT, PT AWAKE ALERT AND ORIENTED RESTING IN BED, C/O HEADACHE, NECK PAIN AND SHOULDER PAIN @ 10/10, CONCERN ADDRESSED, IVF INFUSING, TELE MONITOR IN PLACE, CALL CANAS IN REACH, BED RAILS PADDED AND BED LOCKED IN LOWEST POSITION.
[2021-11-17 08:19] VITALS: BP 127/77
[2021-11-17 11:56] VITALS: BP 140/79
--- NOTE | 2021-11-17 11:58 | NUR ---
INFORMED OF MRI PROCEDURE, VOLUNTEER HERE AT THIS TIME RECEIVING PT AND TRANSPORTING HER VIA W/C TO MRI
--- NOTE | 2021-11-17 13:00 | NUR ---
RETURNED TO UNIT AND SETTLED IN BED, FAMILY VISITING. PRINCE FROM MRI JUST CALLED @ 1322 INFORMING US PT WAS UNABLE TO TOLERATE THE CONTRAST PORTION OF MRI BUT COMPLETED THE NON-CONTRAST PORTION, MEDICAL TEAM WILL BE INFORMED DARINEL.
--- NOTE | 2021-11-17 13:29 | NUR ---
DR GIVENS NOTIFIED OF INCOMPLETE MRI VIA TELEPHONE, SAID IT WAS OK.
[2021-11-17 15:12] VITALS: BP 149/82
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
[2021-11-17 19:00] VITALS: BP 121/79
--- NOTE | 2021-11-17 21:42 | NUR ---
PHYSICAL ASSESMENT COMPLETE. PT CURRENTLY DENIES PAIN OR DISCOMFORT. SCHEDULED MEDICATIONS AND PRN MEDICATION ADMINISTERED, SEE E-MAR. PT TOOK SHOWER AND STATES SHE FEELS MUCH BETTER. PT DENIES ANY NEEDS AT THIS TIME. PLAN OF CARE REVIEWED, PT DENIES QUESTIONS, VERBALIZES UNDERSTANDING. ITEMS WITHIN REACH, BED LOCKED IN LOW POSITION W/ BEDRAILS UP X2. CALL CANAS WITHIN REACH, AGREES TO CALL PRN.
[2021-11-18] VITALS: BP 114/61
[2021-11-18 03:44] VITALS: BP 129/68
--- NOTE | 2021-11-18 06:05 | NUR ---
PT C/O OF A 06/02 HEADACHE. PRN MEDICATION GIVEN. RESPIRATIONS REGULAR AND UNLABORED. ITEMS REMAIN WITHIN REACH, CALL CANAS REMAINS WITHIN REACH. BED REMAINS LOCKED AND IN LOW POSITION WITH BEDRAILS UP X2. WILL CONTINUE TO MONITOR.
--- NOTE | 2021-11-18 08:00 | NUR ---
SHIFT CHANGE REPORT, PT AWAKE ALERT AND ORIENTED RESTING IN BED, C/O HEADACHE AND NECK PAIN, IVF INFUSING, TELE MONITOR IN PLACE, CALL CANAS IN REACH AND BED LOCKED IN LOWEST POSITION.
[2021-11-18 08:42] VITALS: BP 135/74
--- NOTE | 2021-11-18 10:41 | NUR ---
CONSULT WITH PHYCHOLOGIST JUST COMPLETED, CONCERNS ADDRESSED, WILL CONTINUE TO MONITOR.
[2021-11-18] MEDS ORDERED: KEPPRA1000 MG PO (11:08)
--- NOTE | 2021-11-18 11:55 | NUR ---
DR NAVARRETE JUST CALLED ADVISING US TO HAVE PT CONTINUE FOLLOW-UP WITH HER PSYCHIATRIST AND TO GO TO [email or web address] FOR ADDITIONAL INFORMATION, ALSO TO TELL DR GIVENS TO CALL HER IF HE WANTS TO AND FOR CASE MANAGEMENT TO OFFER ANY INFORMATION SHE HAS HERE THAT WILL BE BENEFICIAL.
--- NOTE | 2021-11-18 13:38 | NUR ---
Discharge instructions given. Patient verbalizes understanding of same. Discharged in stable condition via Wheelchair to Home with significant other. All belongings sent with pt.
== END 2021-11-18 13:38 | disposition home or self-care (01) ==
LOC: ED 11:36 → ED-I 12:07 → ED 12:07 → ED-I 18:20 → ED 19:13 → MS2 19:14
PROVIDERS: Emergency Medicine; Nurse Practitioner; ADMIT Internal Medicine; ATTEND Internal Medicine
DX: G40.409 Other generalized epilepsy and epileptic syndromes, not intractable, without status epilepticus (principal); G43.909 Migraine, unspecified, not intractable, without status migrainosus; F31.9 Bipolar disorder, unspecified; E03.9 Hypothyroidism, unspecified; F41.9 Anxiety disorder, unspecified; E78.5 Hyperlipidemia, unspecified; K21.9 Gastro-esophageal reflux disease without esophagitis; Z87.820 Personal history of traumatic brain injury; Z20.822 Contact with and (suspected) exposure to COVID-19
CPT/HCPCS: G0378; J1650; J1953; J2060

== ENCOUNTER 2021-11-28 16:46 | Emergency (ER) | payer OTHER ==
[2021-11-28] VITALS (16 sets, daily range): BP systolic 130–160; BP diastolic 73–93
[~2021-11-28] VITALS: Ht 165.1 cm; Wt 70.0 kg
[~2021-11-28 16:46] MED LIST changes: +ALL DAY ALLG10 MG PO; +KEPPRA1000 MG PO
[2021-11-28 19:05] LABS: HEMATOCRIT 37.3 % (37.0-47.0); HEMOGLOBIN 12.6 g/dl (12.0-16.0); IMMATURE GRANULOCYTES 0.2 % (0.0-5.0); MEAN CELL VOLUME 95.4 fL CALC (80.0-100.0); MEAN CORPUSCULAR HGB 32.2 pG CALC (26.0-32.0); MEAN CORPUSCULAR HGB CONC 33.8 g/dL CAL (32.0-36.0); NEUT# 3.98 thou/uL (2.00-7.15); RED BLOOD COUNT 3.91 mill/uL (4.20-5.60); RED CELL DISTRI WIDTH 12.3 % (11.5-15.5)
[2021-11-28 19:20] LABS: ALBUMIN 3.8 g/dL (3.2-5.0); ALKALINE PHOSPHATASE 120 u/l (38-126); ANION GAP 7 (6-22 (CALC)); BUN 13 mg/dL (7-17); BUN/CREATININE RATIO 25 (12-20 (CALC)); CARBON DIOXIDE 27 mmol/l (22-30); CHLORIDE 107 mmol/l (95-108); CREATININE 0.5 mg/dL (0.5-1.0); GFR > 60 ML/MIN (>=60 (CALC)); GFR FOR AFR.AMER. > 60 ML/MIN (>=60 (CALC)); POTASSIUM 3.4 mmol/l (3.5-5.1); SGOT/AST 35 u/l (14-36); SODIUM 138 mmol/l (137-146); TOTAL PROTEIN 6.9 g/dL (6.3-8.2)
[2021-11-28 19:21] LABS: BILIRUBIN, TOTAL 0.2 mg/dL (0.0-1.4)
[2021-11-29] VITALS (11 sets, daily range): BP systolic 123–156; BP diastolic 70–97
== END 2021-11-29 09:35 ==
LOC: ED 16:46
PROVIDERS: Family Medicine
DX: G40.909 Epilepsy, unspecified, not intractable, without status epilepticus (principal); E03.9 Hypothyroidism, unspecified; E78.00 Pure hypercholesterolemia, unspecified; F31.9 Bipolar disorder, unspecified; F41.9 Anxiety disorder, unspecified; K21.9 Gastro-esophageal reflux disease without esophagitis; Z87.820 Personal history of traumatic brain injury; Z20.822 Contact with and (suspected) exposure to COVID-19
CPT/HCPCS: J1953

== ENCOUNTER 2022-01-26 08:26 | Emergency (ER) | payer OTHER ==
[~2022-01-26] VITALS: Ht 157.5 cm; Wt 70.0 kg
[2022-01-26 08:54] VITALS: BP 149/91
[2022-01-26 09:00] VITALS: BP 131/88
[2022-01-26 09:30] VITALS: BP 143/96
[2022-01-26] MEDS ORDERED: ZOFRAN4 MG/TAB PO (09:32)
[2022-01-26 10:00] VITALS: BP 146/92
[2022-01-26 10:30] VITALS: BP 147/89
== END 2022-01-26 10:38 | disposition home or self-care (01) ==
LOC: ED 08:26
DX: R11.2 Nausea with vomiting, unspecified (principal); R19.7 Diarrhea, unspecified; G40.909 Epilepsy, unspecified, not intractable, without status epilepticus; E03.9 Hypothyroidism, unspecified; E78.00 Pure hypercholesterolemia, unspecified; F19.20 Other psychoactive substance dependence, uncomplicated; K21.9 Gastro-esophageal reflux disease without esophagitis; F41.9 Anxiety disorder, unspecified; F31.9 Bipolar disorder, unspecified; Z87.820 Personal history of traumatic brain injury

== ENCOUNTER 2022-03-01 23:38 | Emergency (ER) | payer OTHER ==
[~2022-03-01] VITALS: Ht 157.5 cm; Wt 73.0 kg
[~2022-03-01 23:38] MED LIST changes: +ZOFRAN4 MG/TAB PO
[2022-03-02 00:22] VITALS: BP 113/71
[2022-03-02 00:49] VITALS: BP 118/74
[2022-03-02 01:00] VITALS: BP 101/58
[2022-03-02 01:00] LABS: URINE BILIRUBIN - DIPSTICK NEGATIVE (NEGATIVE); URINE BLOOD DIPSTICK NEGATIVE (NEGATIVE); URINE COLOR YELLOW; URINE GLUCOSE - DIPSTICK NEGATIVE (NEGATIVE); URINE KETONE NEGATIVE (NEGATIVE); URINE LEUK ESTERASE NEGATIVE (NEGATIVE); URINE PROTEIN - DIPSTICK NEGATIVE (NEG-TRACE); URINE SPECIFIC GRAVITY >=1.030; URINE UROBILINOGEN - DIPSTICK 0.2 E.U./dL (0.2)
[2022-03-02 01:02] LABS: URINE NITRITE - DIPSTICK NEGATIVE (Negative)
[2022-03-02 01:07] LABS: HEMATOCRIT 38.9 % (37.0-47.0); HEMOGLOBIN 12.8 g/dl (12.0-16.0); IMMATURE GRANULOCYTES 0.6 % (0.0-5.0); MEAN CORPUSCULAR HGB 31.9 pG CALC (26.0-32.0); MEAN CORPUSCULAR HGB CONC 32.9 g/dL CAL (32.0-36.0); NEUT# 3.58 thou/uL (2.00-7.15); RED BLOOD COUNT 4.01 mill/uL (4.20-5.60); RED CELL DISTRI WIDTH 12.2 % (11.5-15.5)
[2022-03-02 01:15] VITALS: BP 103/60
[2022-03-02 01:15] LABS: ALBUMIN 3.7 g/dL (3.2-5.0); ALKALINE PHOSPHATASE 105 u/l (38-126); ANION GAP 11 (6-22 (CALC)); BILIRUBIN, TOTAL 0.4 mg/dL (0.0-1.4); BUN 17 mg/dL (7-17); BUN/CREATININE RATIO 25 (12-20 (CALC)); CARBON DIOXIDE 29 mmol/l (22-30); CHLORIDE 103 mmol/l (95-108); CREATININE 0.7 mg/dL (0.5-1.0); GFR FOR AFR.AMER. > 60 ML/MIN (>=60 (CALC)); GFR OTHER RACES > 60 ML/MIN (>=60 (CALC)); POTASSIUM 3.8 mmol/l (3.5-5.1); SGOT/AST 35 u/l (14-36); SODIUM 141 mmol/l (137-146); TOTAL PROTEIN 6.8 g/dL (6.3-8.2)
[2022-03-02 01:26] LABS: MYOGLOBIN 23 ng/mL (0 - 62)
[2022-03-02 01:29] LABS: AMYLASE 61 u/l (30-110); LIPASE 59 u/l (23-300)
[2022-03-02 02:15] VITALS: BP 114/70
[2022-03-02] MEDS ORDERED: PREVACID30 M3 PO (02:17)
[2022-03-02] MEDS ORDERED: ONDANSETRON4 MG PO (02:17)
[2022-03-02 02:30] VITALS: BP 105/73
[2022-03-02 02:52] LABS: TSH, 3RD GENERATION 1.62 uIU/mL (0.47 - 4.68)
== END 2022-03-02 02:55 | disposition home or self-care (01) ==
LOC: ED 23:38
PROVIDERS: Emergency Medicine
DX: T40.495A Adverse effect of other synthetic narcotics, initial encounter (principal); F41.9 Anxiety disorder, unspecified; R11.10 Vomiting, unspecified; R10.13 Epigastric pain; R94.31 Abnormal electrocardiogram [ECG] [EKG]
CPT/HCPCS: Q9967; S0164

== ENCOUNTER 2022-03-04 17:33 | Emergency (ER) | payer OTHER ==
[~2022-03-04] VITALS: Ht 157.5 cm; Wt 75.0 kg
[~2022-03-04 17:33] MED LIST changes: +ONDANSETRON4 MG PO; +PREVACID30 M3 PO
[2022-03-04 17:48] VITALS: BP 140/84
[2022-03-04 18:00] VITALS: BP 132/75
[2022-03-04 18:15] VITALS: BP 143/81
[2022-03-04 18:30] VITALS: BP 131/78
[2022-03-04 18:50] LABS: HEMATOCRIT 33.1 % (37.0-47.0); HEMOGLOBIN 11.1 g/dl (12.0-16.0); MEAN CELL VOLUME 95.4 fL CALC (80.0-100.0); MEAN CORPUSCULAR HGB CONC 33.5 g/dL CAL (32.0-36.0); NEUT# 3.51 thou/uL (2.00-7.15); RED BLOOD COUNT 3.47 mill/uL (4.20-5.60); RED CELL DISTRI WIDTH 12.3 % (11.5-15.5)
[2022-03-04 19:08] LABS: ALBUMIN 3.7 g/dL (3.2-5.0); ALKALINE PHOSPHATASE 94 u/l (38-126); ANION GAP 11 (6-22 (CALC)); BILIRUBIN, TOTAL 0.4 mg/dL (0.0-1.4); BUN 12 mg/dL (7-17); BUN/CREATININE RATIO 20 (12-20 (CALC)); CARBON DIOXIDE 28 mmol/l (22-30); CHLORIDE 103 mmol/l (95-108); CREATININE 0.6 mg/dL (0.5-1.0); GFR FOR AFR.AMER. > 60 ML/MIN (>=60 (CALC)); GFR OTHER RACES > 60 ML/MIN (>=60 (CALC)); POTASSIUM 3.6 mmol/l (3.5-5.1); SGOT/AST 33 u/l (14-36); SODIUM 138 mmol/l (137-146); TOTAL PROTEIN 6.8 g/dL (6.3-8.2)
[2022-03-04 19:39] LABS: TSH, 3RD GENERATION 0.97 uIU/mL (0.47 - 4.68)
[2022-03-04 21:37] VITALS: BP 131/78
== END 2022-03-04 21:58 | disposition home or self-care (01) ==
LOC: ED 17:33
PROVIDERS: Emergency Medicine; Family Medicine
DX: R60.9 Edema, unspecified (principal); G40.909 Epilepsy, unspecified, not intractable, without status epilepticus; E03.9 Hypothyroidism, unspecified; E78.00 Pure hypercholesterolemia, unspecified; F41.9 Anxiety disorder, unspecified; F31.9 Bipolar disorder, unspecified; K21.9 Gastro-esophageal reflux disease without esophagitis; Z87.820 Personal history of traumatic brain injury
CPT/HCPCS: Q9967

== ENCOUNTER 2022-03-26 16:29 | Emergency (ER) | payer OTHER ==
[~2022-03-26] VITALS: Ht 157.5 cm; Wt 72.7 kg
[2022-03-26 16:37] VITALS: BP 123/101
[2022-03-26 17:02] VITALS: BP 120/70
[2022-03-26 17:24] LABS: HEMATOCRIT 35.2 % (37.0-47.0); HEMOGLOBIN 11.8 g/dl (12.0-16.0); IMMATURE GRANULOCYTES 0.2 % (0.0-5.0); MEAN CELL VOLUME 95.4 fL CALC (80.0-100.0); MEAN CORPUSCULAR HGB CONC 33.5 g/dL CAL (32.0-36.0); NEUT# 3.13 thou/uL (2.00-7.15); RED BLOOD COUNT 3.69 mill/uL (4.20-5.60); RED CELL DISTRI WIDTH 12.5 % (11.5-15.5)
[2022-03-26 17:31] VITALS: BP 114/73
[2022-03-26 17:44] LABS: INTERNATIONAL NORMALIZED RATIO 0.9 RATIO (0.7-1.3); PROTHROMBIN TIME 9.7 SECONDS (9.0-12.5)
[2022-03-26 17:49] LABS: ALBUMIN 3.6 g/dL (3.2-5.0); ALKALINE PHOSPHATASE 110 u/l (38-126); ANION GAP 9 (6-22 (CALC)); BILIRUBIN, TOTAL 0.4 mg/dL (0.0-1.4); BUN 14 mg/dL (7-17); BUN/CREATININE RATIO 25 (12-20 (CALC)); CARBON DIOXIDE 25 mmol/l (22-30); CHLORIDE 106 mmol/l (95-108); CREATININE 0.6 mg/dL (0.5-1.0); GFR FOR AFR.AMER. > 60 ML/MIN (>=60 (CALC)); GFR OTHER RACES > 60 ML/MIN (>=60 (CALC)); POTASSIUM 3.5 mmol/l (3.5-5.1); SGOT/AST 26 u/l (14-36); SODIUM 135 mmol/l (137-146); TOTAL PROTEIN 6.3 g/dL (6.3-8.2)
[2022-03-26 18:00] VITALS: BP 122/72
[2022-03-26 18:00] LABS: D-DIMER 0.36 mg/L (0.19-0.60); MYOGLOBIN 18 ng/mL (0 - 62)
[2022-03-26] MEDS ORDERED: PAXLOVID PO (18:23)
[2022-03-26 18:30] VITALS: BP 118/79
[2022-03-26 18:46] VITALS: BP 118/79
[2022-03-27] MEDS ORDERED: PAXLOVID PO ×2 (09:52→14:44)
== END 2022-03-26 18:46 | disposition home or self-care (01) ==
LOC: ED 16:29
PROVIDERS: Nurse Practitioner
DX: U07.1 COVID-19 (principal); R05.9 Cough, unspecified; R50.9 Fever, unspecified; R52 Pain, unspecified; R09.81 Nasal congestion; Z87.891 Personal history of nicotine dependence; G40.909 Epilepsy, unspecified, not intractable, without status epilepticus; F41.9 Anxiety disorder, unspecified; Z87.820 Personal history of traumatic brain injury; E03.9 Hypothyroidism, unspecified; F31.9 Bipolar disorder, unspecified; E78.00 Pure hypercholesterolemia, unspecified; K21.9 Gastro-esophageal reflux disease without esophagitis

== ENCOUNTER 2022-04-01 16:42 | Emergency (ER) | payer OTHER ==
[~2022-04-01] VITALS: Ht 157.5 cm; Wt 68.0 kg
[~2022-04-01 16:42] MED LIST changes: +PAXLOVID PO
[2022-04-01 20:37] LABS: IMMATURE GRANULOCYTES 0.1 % (0.0-5.0); MEAN CELL VOLUME 90.1 fL CALC (80.0-100.0); MEAN CORPUSCULAR HGB 31.6 pG CALC (26.0-32.0); MEAN CORPUSCULAR HGB CONC 35.1 g/dL CAL (32.0-36.0); NEUT# 6.14 thou/uL (2.00-7.15); RED BLOOD COUNT 5.06 mill/uL (4.20-5.60); RED CELL DISTRI WIDTH 12.2 % (11.5-15.5)
[2022-04-01 20:44] LABS: HEMATOCRIT 45.6 % (37.0-47.0)
[2022-04-01 21:00] LABS: ALKALINE PHOSPHATASE 163 u/l (38-126); AMYLASE 85 u/l (30-110); ANION GAP 13 (6-22 (CALC)); BUN 10 mg/dL (7-17); BUN/CREATININE RATIO 15 (12-20 (CALC)); CARBON DIOXIDE 26 mmol/l (22-30); CHLORIDE 105 mmol/l (95-108); CREATININE 0.7 mg/dL (0.5-1.0); GFR FOR AFR.AMER. > 60 ML/MIN (>=60 (CALC)); GFR OTHER RACES > 60 ML/MIN (>=60 (CALC)); LIPASE 45 u/l (23-300); POTASSIUM 4.1 mmol/l (3.5-5.1); SGOT/AST 28 u/l (14-36); SODIUM 140 mmol/l (137-146)
[2022-04-01 21:02] LABS: ALBUMIN 4.6 g/dL (3.2-5.0); BILIRUBIN, TOTAL 0.7 mg/dL (0.0-1.4); TOTAL PROTEIN 8.6 g/dL (6.3-8.2)
[2022-04-01 21:12] LABS: MYOGLOBIN 24 ng/mL (0 - 62)
[2022-04-01] MEDS ORDERED: EQ OMEPRAZOLE20 MG PO (22:00)
[2022-04-01] MEDS ORDERED: ULTRAM50 M1 PO (22:00)
[2022-04-01] MEDS ORDERED: ONDANSETRON4 MG PO (22:00)
[2022-04-01 22:04] VITALS: BP 120/95
== END 2022-04-01 22:19 | disposition home or self-care (01) ==
LOC: ED 16:42
PROVIDERS: Emergency Medicine
DX: K52.9 Noninfective gastroenteritis and colitis, unspecified (principal); G40.909 Epilepsy, unspecified, not intractable, without status epilepticus; E03.9 Hypothyroidism, unspecified; K21.9 Gastro-esophageal reflux disease without esophagitis; F31.9 Bipolar disorder, unspecified; F41.9 Anxiety disorder, unspecified; Z86.16 Personal history of COVID-19; Z20.822 Contact with and (suspected) exposure to COVID-19; Z87.820 Personal history of traumatic brain injury
CPT/HCPCS: Q9967

== ENCOUNTER 2022-08-10 15:05 | Emergency (ER) | payer OTHER ==
[~2022-08-10 15:05] MED LIST changes: +EQ OMEPRAZOLE20 MG PO
== END 2022-08-10 15:15 | disposition left against medical advice (07) | DRG 951 ==
LOC: ED 15:05 → LWOBS 15:14
DX: Z53.21 Procedure and treatment not carried out due to patient leaving prior to being seen by health care provider (principal)

== ENCOUNTER 2022-08-22 18:49 | Emergency (ER) | payer OTHER | END 2022-08-22 20:00 | disposition left against medical advice (07) | DRG 951 | LOC: ED 18:49 → LWOBS 20:00 | DX: Z53.21 Procedure and treatment not carried out due to patient leaving prior to being seen by health care provider (principal) ==

== ENCOUNTER 2022-08-31 17:22 | Emergency (ER) | payer OTHER ==
[~2022-08-31] VITALS: Ht 157.5 cm; Wt 66.8 kg
[2022-08-31] VITALS (14 sets, daily range): BP systolic 113–143; BP diastolic 59–98
[2022-08-31 18:21] LABS: URINE BILIRUBIN - DIPSTICK NEGATIVE (NEGATIVE); URINE BLOOD DIPSTICK TRACE-INTACT (NEGATIVE); URINE COLOR YELLOW; URINE GLUCOSE - DIPSTICK NEGATIVE (NEGATIVE); URINE KETONE NEGATIVE (NEGATIVE); URINE LEUK ESTERASE NEGATIVE (NEGATIVE); URINE PROTEIN - DIPSTICK NEGATIVE (NEG-TRACE)
[2022-08-31 18:22] LABS: URINE NITRITE - DIPSTICK NEGATIVE (Negative)
[2022-08-31 18:48] LABS: HEMOGLOBIN 13.8 g/dl (12.0-16.0); IMMATURE GRANULOCYTES 0.3 % (0.0-5.0); MEAN CORPUSCULAR HGB CONC 33.7 g/dL CAL (32.0-36.0); NEUT# 6.09 thou/uL (2.00-7.15); RED BLOOD COUNT 4.18 mill/uL (4.20-5.60); RED CELL DISTRI WIDTH 12.6 % (11.5-15.5)
[2022-08-31 18:53] LABS: MEAN CELL VOLUME 98.1 fL CALC (80.0-100.0)
[2022-08-31 19:06] LABS: ALBUMIN 4.3 g/dL (3.2-5.0); ALKALINE PHOSPHATASE 137 u/l (38-126); BILIRUBIN, TOTAL 0.8 mg/dL (0.0-1.4); BUN 15 mg/dL (7-17); BUN/CREATININE RATIO 23 (12-20 (CALC)); CHLORIDE 105 mmol/l (95-108); CREATININE 0.7 mg/dL (0.5-1.0); GFR FOR AFR.AMER. > 60 ML/MIN (>=60 (CALC)); GFR OTHER RACES > 60 ML/MIN (>=60 (CALC)); POTASSIUM 3.6 mmol/l (3.5-5.1); SODIUM 137 mmol/l (137-146)
[2022-08-31 19:07] LABS: ANION GAP 17 (6-22 (CALC)); CARBON DIOXIDE 19 mmol/l (22-30); SGOT/AST 63 u/l (14-36)
[2022-08-31] MEDS ORDERED: TAM75CAP PO (20:15)
[2022-08-31] MEDS ORDERED: ONDANSETRON4 MG PO (20:15)
== END 2022-08-31 21:17 | disposition home or self-care (01) ==
LOC: ED 17:22
PROVIDERS: Nurse Practitioner
DX: J10.1 Influenza due to other identified influenza virus with other respiratory manifestations (principal); G40.909 Epilepsy, unspecified, not intractable, without status epilepticus; F41.9 Anxiety disorder, unspecified; F31.9 Bipolar disorder, unspecified; E03.9 Hypothyroidism, unspecified; E78.00 Pure hypercholesterolemia, unspecified; K21.9 Gastro-esophageal reflux disease without esophagitis; Z87.820 Personal history of traumatic brain injury

== ENCOUNTER 2022-10-08 12:55 | Emergency (ER) | payer OTHER ==
[~2022-10-08 12:55] MED LIST changes: +TAM75CAP PO
== END 2022-10-08 16:00 | disposition home or self-care (01) | DRG 951 ==
LOC: ED 12:55 → LWOBS 16:00
DX: Z53.21 Procedure and treatment not carried out due to patient leaving prior to being seen by health care provider (principal)

== ENCOUNTER 2022-11-21 07:05 | Day surgery (SDC) | payer OTHER ==
[~2022-11-21] VITALS: Ht 157.5 cm; Wt 70.3 kg
[2022-11-21] MEDS ORDERED: ALLEGRA-D 2424 HOUR PO (07:16)
[2022-11-21] MEDS ORDERED: ROWEEPRA500 MG PO (07:18)
[2022-11-21] MEDS ORDERED: TRAMADOL HYDROC50 M1 PO (07:20)
[2022-11-21] MEDS ORDERED: MULTI VIT PO (07:21)
[2022-11-21] MEDS ORDERED: PROGESTERONE200 MG PO (07:21)
[2022-11-21 09:21] VITALS: BP 128/84
== END 2022-11-21 09:30 | disposition home or self-care (01) ==
LOC: ORM 07:05
PROVIDERS: ATTEND Physical Medicine & Rehabilitation
DX: G89.4 Chronic pain syndrome (principal)

== ENCOUNTER 2023-02-05 09:03 | Emergency (ER) | payer OTHER ==
[~2023-02-05] VITALS: Ht 157.5 cm; Wt 71.2 kg
[~2023-02-05 09:03] MED LIST changes: +ALLEGRA-D 2424 HOUR PO; +MULTI VIT PO; +PROGESTERONE200 MG PO; +ROWEEPRA500 MG PO; +TRAMADOL HYDROC50 M1 PO
[2023-02-05 09:46] LABS: BASO% 0.4 % (0-3); EOS% 1.4 % (0-8); HEMATOCRIT 39.2 % (37.0-47.0); HEMOGLOBIN 13.2 g/dl (12.0-16.0); IMMATURE GRANULOCYTES 0.1 % (0.0-5.0); LYMPH% 25.5 % (15-41); MEAN CELL VOLUME 96.1 fL CALC (80.0-100.0); MEAN CORPUSCULAR HGB 32.4 pG CALC (26.0-32.0); MEAN CORPUSCULAR HGB CONC 33.7 g/dL CAL (32.0-36.0); MONO% 8.4 % (2-13); NEUT# 4.75 thou/uL (2.00-7.15); NEUT% 64.2 % (42-76); RED BLOOD COUNT 4.08 mill/uL (4.20-5.60)
[2023-02-05 09:54] LABS: ALKALINE PHOSPHATASE 75 u/l (38-126); BILIRUBIN, TOTAL 0.6 mg/dL (0.02-1.3); BUN 15 mg/dL (7-17); BUN/CREATININE RATIO 27 (12-20 (CALC)); CHLORIDE 107 mmol/l (95-108); CREATININE 0.6 mg/dL (0.5-1.0); GFR FOR AFR.AMER. > 60 ML/MIN (>=60 (CALC)); GFR OTHER RACES > 60 ML/MIN (>=60 (CALC)); POTASSIUM 3.5 mmol/l (3.5-5.1); SGOT/AST 26 u/l (14-36); SODIUM 140 mmol/l (137-146); TOTAL PROTEIN 6.8 g/dL (6.3-8.2)
[2023-02-05 09:55] LABS: ANION GAP 11 (6-22 (CALC)); CARBON DIOXIDE 26 mmol/l (22-30)
[2023-02-05] MEDS ORDERED: MACROBID100 M1 PO (10:29)
[2023-02-05] MEDS ORDERED: ZOFRAN4 MG/TAB PO (10:29)
[2023-02-05 13:14] VITALS: BP 112/73
== END 2023-02-05 13:17 | disposition home or self-care (01) ==
LOC: ED 09:03
PROVIDERS: Family Medicine
DX: R07.89 Other chest pain (principal); F41.9 Anxiety disorder, unspecified; M79.89 Other specified soft tissue disorders; T45.0X5A Adverse effect of antiallergic and antiemetic drugs, initial encounter; G40.909 Epilepsy, unspecified, not intractable, without status epilepticus; F31.9 Bipolar disorder, unspecified; E03.9 Hypothyroidism, unspecified; E78.00 Pure hypercholesterolemia, unspecified; K21.9 Gastro-esophageal reflux disease without esophagitis; F17.210 Nicotine dependence, cigarettes, uncomplicated; Y92.230 Patient room in hospital as the place of occurrence of the external cause; Z87.820 Personal history of traumatic brain injury; Z63.8 Other specified problems related to primary support group

== ENCOUNTER 2023-02-20 07:56 | Day surgery (SDC) | payer OTHER ==
[~2023-02-20] VITALS: Ht 157.5 cm; Wt 69.9 kg
[~2023-02-20 07:56] MED LIST changes: +MACROBID100 M1 PO
[2023-02-20 10:34] VITALS: BP 124/75
== END 2023-02-20 10:50 | disposition home or self-care (01) ==
LOC: ORM 07:56
PROVIDERS: ATTEND Physical Medicine & Rehabilitation Pain Medicine
DX: G89.4 Chronic pain syndrome (principal); M79.18 Myalgia, other site; M79.7 Fibromyalgia

== ENCOUNTER 2023-09-17 11:10 | Emergency (ER) | payer OTHER ==
[~2023-09-17] VITALS: Ht 157.5 cm; Wt 69.3 kg
[2023-09-17] VITALS (65 sets, daily range): BP systolic 118–147; BP diastolic 64–116
[~2023-09-17 11:10] MED LIST changes: +CYMBALTA60 MG PO
[2023-09-17 11:49] LABS: BASO% 0.8 % (0-3); EOS% 1.8 % (0-8); HEMATOCRIT 40.8 % (37.0-47.0); HEMOGLOBIN 13.9 g/dl (12.0-16.0); IMMATURE GRANULOCYTES 0.3 % (0.0-5.0); LYMPH% 30.3 % (15-41); MEAN CELL VOLUME 94.4 fL CALC (80.0-100.0); MEAN CORPUSCULAR HGB 32.2 pG CALC (26.0-32.0); MEAN CORPUSCULAR HGB CONC 34.1 g/dL CAL (32.0-36.0); MONO% 6.9 % (2-13); NEUT# 4.24 thou/uL (2.00-7.15); NEUT% 59.9 % (42-76); RED BLOOD COUNT 4.32 mill/uL (4.20-5.60); RED CELL DISTRI WIDTH 11.8 % (11.5-15.5)
[2023-09-17 12:03] LABS: ALBUMIN 4.3 g/dL (3.2-5.0); ALKALINE PHOSPHATASE 79 u/l (38-126); ANION GAP 13 (6-22 (CALC)); BILIRUBIN, TOTAL 0.5 mg/dL (0.02-1.3); BUN 12 mg/dL (7-17); BUN/CREATININE RATIO 20 (12-20 (CALC)); CARBON DIOXIDE 23 mmol/l (22-30); CHLORIDE 108 mmol/l (95-108); CREATININE 0.6 mg/dL (0.5-1.0); GFR FOR AFR.AMER. > 60 ML/MIN (>=60 (CALC)); GFR OTHER RACES > 60 ML/MIN (>=60 (CALC)); MAGNESIUM 1.8 mg/dL (1.6-2.3); POTASSIUM 3.7 mmol/l (3.5-5.1); SGOT/AST 30 u/l (14-36); SODIUM 139 mmol/l (137-146); TOTAL PROTEIN 7.3 g/dL (6.3-8.2)
== END 2023-09-17 18:11 | disposition short-term general hospital (02) | DRG 101 ==
LOC: ED 11:10
PROVIDERS: Emergency Medicine
DX: G40.909 Epilepsy, unspecified, not intractable, without status epilepticus (principal); F41.9 Anxiety disorder, unspecified; E03.9 Hypothyroidism, unspecified; F31.9 Bipolar disorder, unspecified; E78.5 Hyperlipidemia, unspecified; K21.9 Gastro-esophageal reflux disease without esophagitis; Z87.820 Personal history of traumatic brain injury
CPT/HCPCS: J1953

== ENCOUNTER 2023-10-04 11:22 | Emergency (ER) | payer SELFPAY ==
[~2023-10-04] VITALS: Ht 157.5 cm; Wt 63.0 kg
[2023-10-04] VITALS (24 sets, daily range): BP systolic 115–138; BP diastolic 60–91
[2023-10-04 12:08] LABS: BASO% 0.8 % (0-3); EOS% 2.4 % (0-8); HEMATOCRIT 41.4 % (37.0-47.0); HEMOGLOBIN 14.2 g/dl (12.0-16.0); IMMATURE GRANULOCYTES 0.1 % (0.0-5.0); LYMPH% 32.2 % (15-41); MEAN CELL VOLUME 95.4 fL CALC (80.0-100.0); MEAN CORPUSCULAR HGB 32.7 pG CALC (26.0-32.0); MEAN CORPUSCULAR HGB CONC 34.3 g/dL CAL (32.0-36.0); MONO% 8.2 % (2-13); NEUT# 4.45 thou/uL (2.00-7.15); NEUT% 56.3 % (42-76); RED BLOOD COUNT 4.34 mill/uL (4.20-5.60)
[2023-10-04 12:39] LABS: ALBUMIN 4.1 g/dL (3.2-5.0); ALKALINE PHOSPHATASE 84 u/l (38-126); ANION GAP 14 (6-22 (CALC)); BUN 11 mg/dL (7-17); BUN/CREATININE RATIO 18 (12-20 (CALC)); CARBON DIOXIDE 21 mmol/l (22-30); CHLORIDE 107 mmol/l (95-108); CREATININE 0.6 mg/dL (0.5-1.0); ETHYL ALCOHOL 0 mg/dl (0-30); GFR FOR AFR.AMER. > 60 ML/MIN (>=60 (CALC)); GFR OTHER RACES > 60 ML/MIN (>=60 (CALC)); POTASSIUM 4.1 mmol/l (3.5-5.1); SGOT/AST 36 u/l (14-36); SODIUM 138 mmol/l (137-146); TOTAL PROTEIN 7.5 g/dL (6.3-8.2)
[2023-10-04] MEDS ORDERED: LEVETIRACETAM500 MG PO (16:22)
[2023-10-04] MEDS ORDERED: VITAMIN D PO (16:23)
--- NOTE | 2023-10-07 09:23 | NUR ---
G+ COCCI GROWING IN 1/4 BOTTLES CALLED IN BY BONIFACIO TO PHARMACY @0967. CALLED ER @0730 AND THIERRY ALICEA WHO ASKED PHARMACY TO CALL AND CHECK UP ON PATIENT. CALLED PATIENT @0920 TO CHECK UP. PATIENT EXPRESSED NAUSEA, HEARTBURN, AND FEELING LIKE SOMTHING IS OFF. PATIENT DENIED FEVER AND CHILLS PATIENT STATED THEY WILL SEE THEIR PCP TOMORROW ON 10/07/23. INFORMED PATIENT ABOUT PRELIMINARY BLOOD CULTURE RESULTS AND INFORMEND HER THAT WE WILL MONITOR UNTIL FINAL RESULTS. TOLD PATIENT TO REPORT BACK TO [facility] ER IF PATIENT STARTS FEELING WORSE. PT STATED THAT THEY WILL COME BACK TO [facility] IF THEY START FEELING WORSE.
== END 2023-10-04 17:45 | disposition home or self-care (01) | DRG 101 ==
LOC: ED 11:22
PROVIDERS: Family Medicine
DX: G40.909 Epilepsy, unspecified, not intractable, without status epilepticus (principal); F41.9 Anxiety disorder, unspecified; F31.9 Bipolar disorder, unspecified; E03.9 Hypothyroidism, unspecified; E78.5 Hyperlipidemia, unspecified; K21.9 Gastro-esophageal reflux disease without esophagitis; Z87.820 Personal history of traumatic brain injury

== ENCOUNTER 2024-03-13 12:48 | Emergency (ER) | payer SELFPAY ==
[~2024-03-13] VITALS: Ht 157.5 cm; Wt 68.0 kg
[2024-03-13] VITALS (8 sets, daily range): BP systolic 138–155; BP diastolic 75–99
[~2024-03-13 12:48] MED LIST changes: +LEVETIRACETAM500 MG PO; +VITAMIN D PO
[2024-03-13] MEDS ORDERED: CYCLOBENZAPRINE HCL 5 MG TAB PO ONE (13:15)
[2024-03-13] MEDS ORDERED: methylPREDNISolone SODIUM SUCC 125 MG/2 ML SDV IV ONE (13:30)
[2024-03-13] MEDS ORDERED: methylPREDNISolone SODIUM SUCC 125 MG/2 ML SDV IM ONE (13:50)
[2024-03-13 14:08] LABS: URINE BILIRUBIN - DIPSTICK Negative (NEGATIVE); URINE BLOOD DIPSTICK Negative (NEGATIVE); URINE GLUCOSE - DIPSTICK Negative (NEGATIVE); URINE KETONE Trace mg/dL (NEGATIVE); URINE LEUK ESTERASE Negative (NEGATIVE); URINE NITRITE - DIPSTICK Negative (Negative); URINE PROTEIN - DIPSTICK Negative (NEG-TRACE); URINE SPECIFIC GRAVITY 1.025; URINE UROBILINOGEN - DIPSTICK 0.2 E.U./dL (0.2)
[2024-03-13 14:09] LABS: URINE COLOR Yellow
[2024-03-13] MEDS ORDERED: PREDNISONE10 MG PO (15:03)
[2024-03-13] MEDS ORDERED: CYCLOBENZAPRINE10 MG PO (15:03)
[2024-03-13] MEDS ORDERED: TRAMADOL HYDROC50 M1 PO (15:03)
== END 2024-03-13 15:12 | disposition home or self-care (01) | DRG 552 ==
LOC: ED 12:48
PROVIDERS: Nurse Practitioner
DX: M51.36 Other intervertebral disc degeneration, lumbar region (principal); G40.909 Epilepsy, unspecified, not intractable, without status epilepticus; F41.9 Anxiety disorder, unspecified; F31.9 Bipolar disorder, unspecified; E03.9 Hypothyroidism, unspecified; E78.5 Hyperlipidemia, unspecified; K21.9 Gastro-esophageal reflux disease without esophagitis; Z87.820 Personal history of traumatic brain injury

== ENCOUNTER 2024-03-29 21:14 | Emergency (ER) | payer SELFPAY ==
[~2024-03-29] VITALS: Ht 157.5 cm; Wt 68.0 kg
[2024-03-29] VITALS (8 sets, daily range): BP systolic 108–137; BP diastolic 65–94
[~2024-03-29 21:14] MED LIST changes: +CYCLOBENZAPRINE10 MG PO; +PREDNISONE10 MG PO
[2024-03-29] MEDS ORDERED: SODIUM CHLORIDE 0.9% 1,000 ML IV ONE (21:25)
[2024-03-29 21:50] LABS: BASO% 0.6 % (0-3); EOS% 1.5 % (0-8); HEMATOCRIT 39.5 % (37.0-47.0); HEMOGLOBIN 13.1 g/dl (12.0-16.0); IMMATURE GRANULOCYTES 0.1 % (0.0-5.0); LYMPH% 28.1 % (15-41); MEAN CELL VOLUME 98.5 fL CALC (80.0-100.0); MEAN CORPUSCULAR HGB 32.7 pG CALC (26.0-32.0); MEAN CORPUSCULAR HGB CONC 33.2 g/dL CAL (32.0-36.0); MONO% 7.9 % (2-13); NEUT# 5.95 thou/uL (2.00-7.15); NEUT% 61.8 % (42-76); RED BLOOD COUNT 4.01 mill/uL (4.20-5.60); RED CELL DISTRI WIDTH 12.1 % (11.5-15.5)
[2024-03-29 22:05] LABS: ALBUMIN 3.7 g/dL (3.2-5.0); BILIRUBIN, TOTAL 0.5 mg/dL (0.02-1.3); CREATININE 1.1 mg/dL (0.5-1.0); POTASSIUM 3.5 mmol/l (3.5-5.1); TOTAL PROTEIN 6.7 g/dL (6.3-8.2)
[2024-03-29] MEDS ORDERED: PROMETHAZINE HCL 25 MG/ML AMP IV ONE (22:30)
[2024-03-29] MEDS ORDERED: MORPHINE SULFATE 4 MG/ML VIAL IV ONE (22:30)
[2024-03-29] MEDS ORDERED: KEPPRA750 M2 PO (23:10)
[2024-03-29] MEDS ORDERED: CYMBALTA60 MG PO (23:14)
[2024-03-29] MEDS ORDERED: ESTRADIOL0.05 MG/24 TD (23:25)
== END 2024-03-29 23:45 | disposition home or self-care (01) | DRG 101 ==
LOC: ED 21:14
PROVIDERS: Family Medicine
DX: G40.409 Other generalized epilepsy and epileptic syndromes, not intractable, without status epilepticus (principal); M51.36 Other intervertebral disc degeneration, lumbar region; F41.9 Anxiety disorder, unspecified; F31.9 Bipolar disorder, unspecified; E03.9 Hypothyroidism, unspecified; E78.5 Hyperlipidemia, unspecified; K21.9 Gastro-esophageal reflux disease without esophagitis; Z87.820 Personal history of traumatic brain injury
CPT/HCPCS: J1953

== ENCOUNTER 2024-04-08 15:41 | Emergency (ER) | payer SELFPAY ==
[~2024-04-08] VITALS: Ht 157.5 cm; Wt 77.0 kg
[2024-04-08] VITALS (7 sets, daily range): BP systolic 117–137; BP diastolic 68–90
[~2024-04-08 15:41] MED LIST changes: +ESTRADIOL0.05 MG/24 TD; +KEPPRA750 M2 PO
[2024-04-08] MEDS ORDERED: SODIUM CHLORIDE 0.9% 1,000 ML IV ONE (15:45)
[2024-04-08] MEDS ORDERED: LORazepam 2 MG/ML IV ONE (15:50)
[2024-04-08 16:06] LABS: BASO% 0.4 % (0-3); EOS% 1.6 % (0-8); IMMATURE GRANULOCYTES 0.6 % (0.0-5.0); LYMPH% 38.1 % (15-41); MEAN CELL VOLUME 97.6 fL CALC (80.0-100.0); MEAN CORPUSCULAR HGB 32.3 pG CALC (26.0-32.0); MEAN CORPUSCULAR HGB CONC 33.1 g/dL CAL (32.0-36.0); MONO% 7.9 % (2-13); NEUT# 7.12 thou/uL (2.00-7.15); NEUT% 51.4 % (42-76); RED BLOOD COUNT 4.67 mill/uL (4.20-5.60); RED CELL DISTRI WIDTH 12.3 % (11.5-15.5)
[2024-04-08 16:07] LABS: HEMATOCRIT 45.6 % (37.0-47.0); HEMOGLOBIN 15.1 g/dl (12.0-16.0)
[2024-04-08 16:26] LABS: ALBUMIN 4.3 g/dL (3.2-5.0); ALKALINE PHOSPHATASE 99 u/l (38-126); ANION GAP 10 (6-22 (CALC)); BILIRUBIN, TOTAL 0.9 mg/dL (0.02-1.3); BUN 19 mg/dL (7-17); BUN/CREATININE RATIO 29 (12-20 (CALC)); CARBON DIOXIDE 26 mmol/l (22-30); CHLORIDE 107 mmol/l (95-108); CREATININE 0.7 mg/dL (0.5-1.0); ESTIMATED GFR 102 ML/MIN (>=90 (CALC)); POTASSIUM 4.1 mmol/l (3.5-5.1); SGOT/AST 33 u/l (14-36); SODIUM 139 mmol/l (137-146); TOTAL PROTEIN 7.8 g/dL (6.3-8.2)
[2024-04-08 18:45] LABS: URINE BILIRUBIN - DIPSTICK Negative (NEGATIVE); URINE BLOOD DIPSTICK Negative (NEGATIVE); URINE COLOR Yellow; URINE GLUCOSE - DIPSTICK Negative (NEGATIVE); URINE KETONE Negative (NEGATIVE); URINE LEUK ESTERASE Negative (NEGATIVE); URINE NITRITE - DIPSTICK Negative (Negative); URINE PH 6.5 (4.5-8.0); URINE PROTEIN - DIPSTICK Negative (NEG-TRACE); URINE SPECIFIC GRAVITY 1.025; URINE UROBILINOGEN - DIPSTICK 0.2 E.U./dL (0.2)
== END 2024-04-08 19:26 | disposition home or self-care (01) | DRG 101 ==
LOC: ED 15:41
PROVIDERS: Nurse Practitioner
DX: G40.409 Other generalized epilepsy and epileptic syndromes, not intractable, without status epilepticus (principal); F41.9 Anxiety disorder, unspecified; F31.9 Bipolar disorder, unspecified; Z87.820 Personal history of traumatic brain injury
CPT/HCPCS: J1953; J2060

== ENCOUNTER 2024-05-21 12:57 | Emergency (ER) | payer SELFPAY ==
[2024-05-21] VITALS (8 sets, daily range): BP systolic 111–135; BP diastolic 63–88
[~2024-05-21] VITALS: Ht 157.5 cm; Wt 154.0 kg
[2024-05-21] MEDS ORDERED: DEXAMETHASONE SOD. PHOSPHATE 10 MG/ML VIAL IM ONE (14:00)
[2024-05-21] MEDS ORDERED: METHOCARBAMOL 500 MG/TAB PO ONE (14:05)
[2024-05-21] MEDS ORDERED: HYDROmorphone HCL 2 MG/AMP IV ONE (14:05)
[2024-05-21] MEDS ORDERED: HYDROmorphone HCL 2 MG/AMP IM ONE (14:10)
[2024-05-21] MEDS ORDERED: MEDDOSEPAK PO (15:15)
[2024-05-21] MEDS ORDERED: METHOCARBAMOL500 MG PO (15:15)
== END 2024-05-21 15:34 | disposition home or self-care (01) | DRG 552 ==
LOC: ED 12:57
DX: M54.41 Lumbago with sciatica, right side (principal); G40.909 Epilepsy, unspecified, not intractable, without status epilepticus; F41.9 Anxiety disorder, unspecified; F31.9 Bipolar disorder, unspecified; E03.9 Hypothyroidism, unspecified; E78.5 Hyperlipidemia, unspecified; Z87.820 Personal history of traumatic brain injury

== ENCOUNTER 2024-06-03 15:42 | Emergency (ER) | payer SELFPAY ==
[~2024-06-03] VITALS: Ht 157.5 cm; Wt 81.0 kg
[2024-06-03] VITALS (13 sets, daily range): BP systolic 114–138; BP diastolic 64–88
[~2024-06-03 15:42] MED LIST changes: +METHOCARBAMOL500 MG PO
[2024-06-03] MEDS ORDERED: LORazepam 2 MG/ML IV ONE ×2 (15:45→15:50)
[2024-06-03 16:43] LABS: BASO% 0.6 % (0-3); EOS% 1.4 % (0-8); HEMATOCRIT 41.1 % (37.0-47.0); HEMOGLOBIN 13.9 g/dl (12.0-16.0); IMMATURE GRANULOCYTES 0.2 % (0.0-5.0); LYMPH% 30.7 % (15-41); MEAN CELL VOLUME 96.5 fL CALC (80.0-100.0); MEAN CORPUSCULAR HGB 32.6 pG CALC (26.0-32.0); MEAN CORPUSCULAR HGB CONC 33.8 g/dL CAL (32.0-36.0); MONO% 9.7 % (2-13); NEUT# 5.76 thou/uL (2.00-7.15); NEUT% 57.4 % (42-76); RED BLOOD COUNT 4.26 mill/uL (4.20-5.60)
[2024-06-03 17:04] LABS: POTASSIUM 3.9 mmol/l (3.5-5.1); TOTAL PROTEIN 6.6 g/dL (6.3-8.2)
[2024-06-03 17:09] LABS: BILIRUBIN, TOTAL 0.5 mg/dL (0.02-1.3); CREATININE 0.7 mg/dL (0.5-1.0)
[2024-06-03] MEDS ORDERED: MORPHINE SULFATE 4 MG/ML VIAL IV ONE (17:30)
[2024-06-03] MEDS ORDERED: METOCLOPRAMIDE HCL 10 MG/2 ML SDV IV ONE (17:30)
[2024-06-03] MEDS ORDERED: METHOCARBAMOL 1,000 MG/10 ML VIAL IV ONE (17:30)
[2024-06-03 19:18] LABS: URINE BILIRUBIN - DIPSTICK Negative (NEGATIVE); URINE BLOOD DIPSTICK Negative (NEGATIVE); URINE COLOR Yellow; URINE GLUCOSE - DIPSTICK Negative (NEGATIVE); URINE KETONE Negative (NEGATIVE); URINE LEUK ESTERASE Negative (NEGATIVE); URINE NITRITE - DIPSTICK Negative (Negative); URINE PROTEIN - DIPSTICK Negative (NEG-TRACE); URINE SPECIFIC GRAVITY 1.015; URINE UROBILINOGEN - DIPSTICK 0.2 E.U./dL (0.2)
== END 2024-06-03 19:48 | disposition home or self-care (01) | DRG 101 ==
LOC: ED 15:42
PROVIDERS: Nurse Practitioner
DX: G40.909 Epilepsy, unspecified, not intractable, without status epilepticus (principal); M54.50 Low back pain, unspecified; G89.29 Other chronic pain; F41.9 Anxiety disorder, unspecified; F32.A Depression, unspecified; Z87.820 Personal history of traumatic brain injury
CPT/HCPCS: J1953; J2060

== ENCOUNTER 2024-08-10 06:53 | Day surgery (SDC) | payer OTHER ==
[~2024-08-10] VITALS: Ht 157.5 cm; Wt 72.6 kg
[~2024-08-10 06:53] MED LIST changes: +ALLERGY RE50 MCG/ACT; +ALPRAZOLAM ER1 MG PO; +AMOX/K CLAV875 M1 PO; +AZELASTINE HCL0.1 %; +BENZONATATE200 MG PO; +MELOXICAM15 MG PO; +OMEPRAZOLE20 MG PO; +PROGESTERONE
[2024-08-10] MEDS ORDERED: FAMOTIDINE 10MG/ML 2ML SDV IV ONE (07:16)
[2024-08-10] MEDS ORDERED: LACTATED RINGER'S 1,000 ML IV ONE (07:16)
[2024-08-10 09:36] VITALS: BP 132/90
[2024-08-10] MEDS ORDERED: STERILE WATER FOR IRRIGATION 1,000 ML BTL IR ONE (09:50)
[2024-08-10] MEDS ORDERED: PROPOFOL 200 MG/20 ML VIAL IV ONE (10:39)
[2024-08-10] MEDS ORDERED: GLYCOPYRROLATE 0.2 MG/ML IV ONE (10:39)
[2024-08-10] MEDS ORDERED: LIDOCAINE HCL 2% 2ML SDV IV ONE (10:39)
== END 2024-08-10 09:43 | disposition home or self-care (01) | DRG 951 ==
LOC: ENDO 06:53 → ORM 09:50
PROVIDERS: ATTEND Surgery
PROC: 0DBN8ZX Excision of Sigmoid Colon, Via Natural or Artificial Opening Endoscopic, Diagnostic (ICD-10-PCS; principal; 2024-08-10)
DX: Z12.11 Encounter for screening for malignant neoplasm of colon (principal); D12.5 Benign neoplasm of sigmoid colon; K64.8 Other hemorrhoids; G40.909 Epilepsy, unspecified, not intractable, without status epilepticus; Z80.0 Family history of malignant neoplasm of digestive organs

== ENCOUNTER 2024-09-06 09:12 | Emergency (ER) | payer OTHER ==
[~2024-09-06] VITALS: Ht 157.5 cm; Wt 73.0 kg
[2024-09-06] VITALS (7 sets, daily range): BP systolic 126–151; BP diastolic 83–90
[2024-09-06] MEDS ORDERED: IPRATROPIUM-Albuterol 0.5MG-2.5MG/3 ML NEB ONE ×2 (09:35)
[2024-09-06] MEDS ORDERED: predniSONE 20 MG/TAB PO ONE (09:35)
[2024-09-06] MEDS ORDERED: PREDNISONE50 MG PO (10:32)
[2024-09-06] MEDS ORDERED: TAM75CAP PO (10:32)
[2024-09-06] MEDS ORDERED: VENTOLIN HFA108 MCG PO (10:32)
== END 2024-09-06 10:49 | disposition home or self-care (01) | DRG 153 ==
LOC: ED 09:12
DX: J11.1 Influenza due to unidentified influenza virus with other respiratory manifestations (principal); G40.909 Epilepsy, unspecified, not intractable, without status epilepticus; F41.9 Anxiety disorder, unspecified; F31.9 Bipolar disorder, unspecified; E03.9 Hypothyroidism, unspecified; E78.5 Hyperlipidemia, unspecified; K21.9 Gastro-esophageal reflux disease without esophagitis; Z87.820 Personal history of traumatic brain injury; Z20.822 Contact with and (suspected) exposure to COVID-19

== ENCOUNTER 2024-09-21 17:59 | Emergency (ER) | payer OTHER ==
[~2024-09-21] VITALS: Ht 157.5 cm; Wt 72.6 kg
[~2024-09-21 17:59] MED LIST changes: +VENTOLIN HFA108 MCG PO
[2024-09-21 18:05] VITALS: BP 121/89
[2024-09-21] MEDS ORDERED: KETOROLAC TROMETHAMINE 30 MG/ML SDV IV ONE (18:10)
[2024-09-21] MEDS ORDERED: SODIUM CHLORIDE 0.9% 1,000 ML IV ONE (18:10)
[2024-09-21] MEDS ORDERED: LORazepam 2 MG/ML IV ONE ×2 (18:10→18:35)
[2024-09-21 18:15] VITALS: BP 118/80
[2024-09-21 18:41] LABS: BASO% 0.7 % (0-3); EOS% 1.6 % (0-8); HEMATOCRIT 39.2 % (37.0-47.0); HEMOGLOBIN 13.2 g/dl (12.0-16.0); IMMATURE GRANULOCYTES 0.3 % (0.0-5.0); LYMPH% 26.1 % (15-41); MEAN CELL VOLUME 96.3 fL CALC (80.0-100.0); MEAN CORPUSCULAR HGB 32.4 pG CALC (26.0-32.0); MEAN CORPUSCULAR HGB CONC 33.7 g/dL CAL (32.0-36.0); MONO% 9.3 % (2-13); NEUT# 4.74 thou/uL (2.00-7.15); RED BLOOD COUNT 4.07 mill/uL (4.20-5.60); RED CELL DISTRI WIDTH 12.1 % (11.5-15.5)
[2024-09-21 18:50] LABS: ALBUMIN 4.3 g/dL (3.2-5.0); BILIRUBIN, TOTAL 1.1 mg/dL (0.02-1.3); CREATININE 0.6 mg/dL (0.5-1.0); POTASSIUM 3.9 mmol/l (3.5-5.1); TOTAL PROTEIN 7.3 g/dL (6.3-8.2)
[2024-09-21 19:30] VITALS: BP 114/70
[2024-09-21] MEDS ORDERED: traMADol HCL 50 MG/TAB PO ONE (19:40)
[2024-09-21] MEDS ORDERED: NAPROXEN500 MG PO (19:40)
[2024-09-21 19:45] VITALS: BP 110/68
[2024-09-21 19:50] VITALS: BP 110/68
== END 2024-09-21 19:50 | disposition home or self-care (01) | DRG 101 ==
LOC: ED 17:59
PROVIDERS: Nurse Practitioner
DX: G40.909 Epilepsy, unspecified, not intractable, without status epilepticus (principal)
CPT/HCPCS: J1953; J2060

== ENCOUNTER 2024-10-17 16:33 | Emergency (ER) | payer OTHER ==
[2024-10-17] VITALS (12 sets, daily range): BP systolic 106–136; BP diastolic 61–97
[~2024-10-17] VITALS: Ht 157.5 cm; Wt 77.8 kg
[~2024-10-17 16:33] MED LIST changes: +NAPROXEN500 MG PO
[2024-10-17] MEDS ORDERED: MIDAZOLAM HCL 2 MG/2 ML VIAL IV ONE (16:40)
[2024-10-17 17:25] LABS: BASO% 0.5 % (0-3); EOS% 1.8 % (0-8); HEMATOCRIT 43.6 % (37.0-47.0); HEMOGLOBIN 14.4 g/dl (12.0-16.0); IMMATURE GRANULOCYTES 0.2 % (0.0-5.0); LYMPH% 27.6 % (15-41); MEAN CELL VOLUME 98.2 fL CALC (80.0-100.0); MEAN CORPUSCULAR HGB 32.4 pG CALC (26.0-32.0); MONO% 7.9 % (2-13); NEUT# 6.07 thou/uL (2.00-7.15); RED BLOOD COUNT 4.44 mill/uL (4.20-5.60); RED CELL DISTRI WIDTH 12.1 % (11.5-15.5)
[2024-10-17 17:42] LABS: ALBUMIN 4.4 g/dL (3.2-5.0); BILIRUBIN, TOTAL 0.8 mg/dL (0.02-1.3); CREATININE 0.6 mg/dL (0.5-1.0); TOTAL PROTEIN 7.4 g/dL (6.3-8.2)
== END 2024-10-17 19:10 | disposition home or self-care (01) | DRG 101 ==
LOC: ED 16:33
PROVIDERS: Family Medicine
DX: G40.909 Epilepsy, unspecified, not intractable, without status epilepticus (principal); F41.9 Anxiety disorder, unspecified; F31.9 Bipolar disorder, unspecified; E78.5 Hyperlipidemia, unspecified; E03.9 Hypothyroidism, unspecified; K21.9 Gastro-esophageal reflux disease without esophagitis; Z87.820 Personal history of traumatic brain injury
CPT/HCPCS: J1953